=== PATIENT | male | born 1955 | race Caucasian/White ===

== ENCOUNTER 2021-03-26 15:58 | Outpatient (REF) | payer MEDICARE, SELFPAY ==
[2021-03-26 16:24] LABS: MANUAL DIFF FLAG NO
[2021-03-26 16:26] LABS: Basophils Percent Auto 0.5 % (0-2); Eosinophils Absolute Auto 0.3 X10*3/uL (0.0-0.4); Hematocrit 44.2 % (42-52); Hemoglobin 14.7 g/dl (14.0-18.0); Imm Gran Abs Auto 0.04 X10*3/uL (0.00-0.03); Imm Gran Pct Auto 0.5 % (0.0-0.4); Lymphocytes Absolute Auto 2.2 X10*3/uL (1.2-4.9); Lymphocytes Percent Auto 25.9 % (20-40); Mean Corpuscular HGB Conc 33.3 g/dl (31.0-36.0); Mean Corpuscular Hemoglobin 30.5 pg (27.0-33.0); Mean Corpuscular Volume 91.7 fL (80-98); Mean Platelet Volume 10.6 fL (9.4-12.4); Monocytes Absolute Auto 0.7 X10*3/uL (0.1-1.2); Monocytes Percent Auto 8.1 % (2-11); Neutrophils Absolute Auto 5.4 X10*3/uL (2.0-8.3); Platelet Count 182 X10*3/uL (160-400); Red Blood Count 4.82 X10*6/uL (4.60-5.80); Red Cell Distribution Width 12.7 % (11.0-16.0); White Blood Count 8.7 X10*3/uL (4.8-10.8)
[2021-03-26 16:49] LABS: Anion Gap 13 (12-20); Blood Urea Nitrogen 21 mg/dL (9-16); Calcium 9.6 mg/dL (8.4-10.2); Carbon Dioxide 27 mmol/L (22-29); Chloride 104 mmol/L (96-108); Cholesterol 256 mg/dL; Estimated Glomerular Filt Rate 59; Glucose Random 344 mg/dL (60-115); HDL Cholesterol 40 mg/dL; Potassium 4.5 mmol/L (3.3-5.1); Sodium 139 mmol/L (135-145); Triglycerides 552 mg/dL
[2021-03-26 16:59] LABS: Appearance Urine CLEAR; Color Urine YELLOW; Glucose Urine UA >=1000 MG/DL (NEG); Leukocyte Esterase Urine NEG (NEG); Nitrite Urine NEG (NEG); PH 5.5 (5.0-8.0); Urine Blood NEG (NEG); Urine Ketones 5 MG/DL (NEG); Urine Protein NEG (NEG-TRACE)
[2021-03-26 17:06] LABS: Creatinine Urine 90.62 mg/dL; Microalbum/Creatinine Ratio Ur 5.5 ug/mg cr
[2021-03-26 17:22] LABS: WBC Urine 0 /HPF (0-4)
[2021-03-26 17:23] LABS: RBC Urine 0-2 /HPF (0); Squamous Epithelial Cell Urine TRACE /LPF
== END 2021-03-26 15:59 | disposition home or self-care (01) ==
LOC: HO.LAB 15:58
PROVIDERS: PCP Physician Assistant; Visit Provider Physician Assistant
DX: I10 Essential (primary) hypertension (principal)
CPT/HCPCS: 36415; 80048; 80061; 81001; 81003; 82043; 85025

== ENCOUNTER 2021-10-09 07:08 | Outpatient (REF) | payer MEDICARE, SELFPAY ==
[2021-10-09 08:37] LABS: Estimated Average Glucose 174 mg/dL; Hemoglobin A1c % 7.7 %
[2021-10-09 08:57] LABS: Alanine Aminotransferase 22 U/L (0-40); Albumin Level 4.1 g/dL (3.5-5.0); Alkaline Phosphatase 57 U/L (39-117); Anion Gap 12 (12-20); Aspartate Amino Transferase 17 U/L (5-37); Bilirubin Total 0.6 mg/dL (0.0-1.0); Blood Urea Nitrogen 19 mg/dL (9-16); Calcium 9.4 mg/dL (8.4-10.2); Carbon Dioxide 27 mmol/L (22-29); Chloride 105 mmol/L (96-108); Cholesterol 257 mg/dL; Estimated Glomerular Filt Rate > 60; Glucose Fasting 177 mg/dL (60-99); HDL Cholesterol 47 mg/dL; LDL Cholesterol Calculated 184 mg/dl; Potassium 4.6 mmol/L (3.3-5.1); Sodium 139 mmol/L (135-145); Total Protein 7.2 g/dL (6.5-8.0); Triglycerides 134 mg/dL
[2021-10-09 09:10] LABS: TSH reflex Free T4 1.91 uIU/mL (0.32-4.0)
[2021-10-09 09:59] LABS: Appearance Urine CLEAR; Color Urine YELLOW; Glucose Urine UA NEG (NEG); Leukocyte Esterase Urine NEG (NEG); Nitrite Urine NEG (NEG); PH 5.5 (5.0-8.0); Specific Gravity - Urine >= 1.030 (1.005-1.025); Urine Blood NEG (NEG); Urine Ketones NEG (NEG); Urine Protein NEG (NEG-TRACE)
[2021-10-09 10:03] LABS: Prostate Specific Antigen Scr 0.35 ng/mL (<0.05-4.0)
== END 2021-10-09 07:09 | disposition home or self-care (01) ==
LOC: HO.LAB 07:08
PROVIDERS: PCP Physician Assistant; Visit Provider Physician Assistant
DX: Z12.5 Encounter for screening for malignant neoplasm of prostate (principal); R10.9 Unspecified abdominal pain; E11.65 Type 2 diabetes mellitus with hyperglycemia; E78.1 Pure hyperglyceridemia
CPT/HCPCS: 36415; 80053; 80061; 81003; 83036; 84153; 84443

== ENCOUNTER 2023-04-16 08:18 | Outpatient (REF) | payer MEDICARE, SELFPAY ==
[2023-04-16 09:38] LABS: Estimated Average Glucose 217 mg/dL; Hemoglobin A1c % 9.2 % (<6.0)
[2023-04-16 09:54] LABS: Alanine Aminotransferase 28 U/L (0-40); Albumin Level 3.9 g/dL (3.5-5.0); Alkaline Phosphatase 55 U/L (39-117); Anion Gap 13 (12-20); Aspartate Amino Transferase 19 U/L (5-37); Bilirubin Total 0.5 mg/dL (0.0-1.0); Blood Urea Nitrogen 19 mg/dL (9-16); Carbon Dioxide 27 mmol/L (22-29); Chloride 103 mmol/L (96-108); Cholesterol 258 mg/dL (<200); Estimated Glomerular Filt Rate > 60; Glucose Fasting 205 mg/dL (60-99); HDL Cholesterol 46 mg/dL (>40); LDL Cholesterol Calculated 185 mg/dL (<100); Potassium 4.8 mmol/L (3.3-5.1); Sodium 138 mmol/L (135-145); Total Protein 6.9 g/dL (6.5-8.0); Triglycerides 138 mg/dL (<150)
[2023-04-16 10:11] LABS: Creatinine Urine 94.83 mg/dL; Microalbumin Urine < 5.0 mg/L
[2023-04-16 13:59] LABS: Prostate Specific Antigen Scr 0.34 ng/mL (<0.05-4.0)
[2023-04-20 14:37] LABS: Testosterone, Free 26.4 pg/mL (35.0-155.0); Testosterone, Total 168 ng/dL (250-1100)
== END 2023-04-16 08:19 | disposition home or self-care (01) ==
LOC: HO.LAB 08:18
PROVIDERS: PCP Physician Assistant; Visit Provider Physician Assistant
DX: E11.65 Type 2 diabetes mellitus with hyperglycemia (principal); I42.0 Dilated cardiomyopathy; E11.42 Type 2 diabetes mellitus with diabetic polyneuropathy; I10 Essential (primary) hypertension; R53.83 Other fatigue; Z12.5 Encounter for screening for malignant neoplasm of prostate
CPT/HCPCS: 36415; 80053; 80061; 82043; 82570; 83036; 84153; 84402; 84403

== ENCOUNTER 2023-04-16 11:04 | Outpatient (AMB) | payer MEDICARE, SELFPAY ==
--- NOTE | 2023-04-16 11:05 | A.OFFPC_ITS ---
Vital Signs 04/16/23 11:09 Height 6 ft 3 in Weight 361 lb 8.929 oz BMI 45.2 BP 130/86 Blood Pressure Location Lt brachial Position Sitting Respiration 17 Pulse 80 Pulse Source Pulse Oximeter Pulse Oximetry (%) 97 Oxygen Delivery Method Room Air Intake Visit Reasons: F/U DMII Intake Note: Patient is here to follow up on DMII. Marketing Communications Manager Required: No Accompanied by: Self / Same As Patient Allergies atorvastatin [From LIPITOR] Allergy (Unknown, Verified 04/16/23 11:31) TONGUE SWELLING indomethacin [From INDOCIN] Allergy (Unknown, Verified 04/16/23 11:31) ANAPHYLAXIS Iodinated Contrast Media [IV CONTRAST] Allergy (Unknown, Verified 04/16/23 11:31) VOMITTING metformin Adverse Reaction (Intermediate, Uncoded 04/16/23 11:21) GI upset Medication List - Last Reconciled 04/16/23 by Miguel Willoughby PA-C acetaminophen ER (Tylenol Arthritis Pain) 1,300 mg (2 x 650 mg) PO Q8H PRN allopurinol 300 mg PO DAILY 30 days blood sugar diagnostic (Accu-Chek Guide test strips) As directed blood-glucose meter (Accu-Chek Guide Glucose Meter) As directed CPAP (CPAP Machine/Device) As directed dulaglutide (Trulicity) 0.75 mg (0.5 mL) subcut QWEEK 4 weeks gemfibrozil 600 mg PO BID 30 days glipizide 5 mg PO DAILY 30 days lisinopril 20 mg PO DAILY 30 days metoprolol succinate ER 25 mg PO DAILY 90 days Tobacco use date assessed: 04/16/23 HPI F/U DMII HPI Details Patient is a 68-year-old male here today for follow-up visit.? Patient has a past medical history significant for cardiac arrhythmia and has an AICD placed, type 2 diabetes, gout,? TERRENCE, hypertension. --concern> HAS MULTIPLE COMPLAINTS TODAY --> would like to see an eye doctor for a retinal exam as he has been having blurred vision likely secondary to his uncontrolled diabetes. Also like to get a hearing exam as he has been having progressively worsening hearing loss over last several years. Also reports he has been having low libido and erectile dysfunction and is interested in trying a medication to help with gaining interaction. Type 2 diabetes:? Today's A1c elevated at 9.8. Has noted some weight gain. Does report polydipsia polyuria. Been out of Trulicity over the last 6 months.? PLAN: Will start Lantus 10 units daily. Will restart Trulicity 0.75 weekly. Advised to discontinue glipizide due the risk pancreatic burnout and hypoglycemia. He will work extensively on diabetic diet. .. Dilated cardiomyopathy: Nonischemic dilated cardiomyopathy with left ventricular ejection fraction approximately 35-50% on serial echocardiograms, he is status post biventricular ICD placement with an arterial lead revision done in 2017. He also has had a cardiac catheterization showing no significant atherosclerosis of the coronary arteries. ?Patient followed by Cardiology.? He reports recently having a few episodes of palpitations to which he is concerned about.? Has called his communications instructor and has an appointment coming this coming month. Of note does very elevated total cholesterol and LDL though has not been able to tolerate statin therapy.? Advised to talk to his communications instructor about Praulent injection. .. Obesity:? Continues to suffer from morbid obesity though has been working very hard on trying to lose weight and has lost 4 lb since last office visit Laboratory Tests 09/03/21 10/09/21 02/19/22 15:47 07:35 13:59 Fasting Glucose 177 H Hgb A1c (Clinic) 7.7 H 7.3 H Hemoglobin A1c % Cholesterol LDL Cholesterol, C alc 04/16/23 08:37 Fasting Glucose 205 H Hgb A1c (Clinic) Hemoglobin A1c % 9.2 H Cholesterol 258 H LDL Cholesterol, C alc 185 H PFSH Surgical History History of back surgery AICD (automatic cardioverter/defibrillator) present Family History Father COPD (chronic obstructive pulmonary disease) CAD (coronary artery disease) Mother No problems noted. Social History Housing: House Patient Tobacco Use Status: Never used Tobacco Tobacco use type: Cigarette e-Cigarette/Vaping Use: Never Used Second Hand Smoke Exposure: No Current occupational status: retired Cognitive needs: No Hearing needs: No Vision needs: Yes (glasses) Questionnaire PHQ-9 Over the last 2 weeks, how often have you been bothered by any of the following problems? 1. Little interest or pleasure in doing things: not at all 2. Feeling down, depressed, or hopeless: not at all 3. Trouble falling or staying asleep, or sleeping too much: not at all 4. Feeling tired or having little energy: not at all 5. Poor appetite or overeating: not at all 6. Feeling bad about yourself - or that you are a failure or have let yourself or your family down: not at all 7. Trouble concentrating on things, such as reading the newspaper or watching television: not at all 8. Moving or speaking so slowly that other people could have noticed. Or the opposite - being so fidgety or restless that you have been moving around a lot more than usual: not at all 9. Thoughts that you would be better off or of hurting yourself in some way: not at all Total score: 0 Depression Screening Interpretation: Negative Depression Screening Done: Yes 26231 - PHQ-9 Billing: Yes Source: Developed by Drs. Damian Justice, Thuy Mast, Jonathon Light and colleagues, with an educational emi from [employer]. Thrive Questionnaire Date Thrive assessed: 04/16/23 I am a: Patient What is your living situation today?: I have a steady place to live Within the past 12 months, did the food you bought not last and you didn't have the money to get more?: Never true Within the past 12 months, did you worry whether your food would run out before you got money to buy more?: Never true Do you have trouble paying for medicines?: No Do you have trouble getting transportation to medical appointments?: No Do you have trouble paying your heating and electricity bill?: No Do you have trouble taking care of your child, family member or friend?: No Do you have trouble with day-to-day activities such as bathing, preparing meals, shopping, managing finances, etc.?: No Are you currently unemployed and looking for a job?: No Are you interested in more education?: No Please select the resources that you would like help with: None Currently or been in a relationship where the following occur: no concerns reported AUDIT C Alcohol Use Questionnaire (AUDIT-C) 1. How often do you have a drink containing alcohol?: Monthly or less 2. How many drinks containing alcohol do you have on a typical day when you are drinking?: 1 or 2 3. How often do you have six or more drinks on one occasion?: Never Total Score: 1 MASON-7 AMB Questionnaire MASON-7 Date MASON - 7 assessed: 04/16/23 Feeling nervous, anxious, or on edge: 0 = Not at all Not being able to stop or control worryin = Not at all Worrying too much about different things: 0 = Not at all Trouble relaxin = Not at all Being so restless that it is hard to sit still: 0 = Not at all Becoming easily annoyed or irritable: 0 = Not at all Feeling afraid as if something awful might happen: 0 = Not at all Total MASON-7 score (0-4 normal; 5-9 mild; 10-14 moderate; 15-21 severe): 0 Source: Developed by Drs. Damian Justice, Thuy Mast, Jonathon Light and colleagues, with an educational emi from [employer]. MASON-7 Assessment Billing MASON-7 Assessment Tool: MASON-7 Assessment 46537 Review of Systems Const Denies headache(s) Eyes Denies loss of vision ENT Denies vertigo, Denies dizziness, Denies headache(s) and Denies sore throat Card Denies chest pain, Denies leg edema and Denies lightheadedness Resp Denies cough, Denies hemoptysis and Denies wheezing GI Denies abdominal pain, Denies melena, Denies constipation, Denies diarrhea and Denies vomiting Denies dysuria, Denies urinary frequency and Denies urinary urgency Musc Denies arthralgias, Denies joint swelling, Denies numbness and Denies tingling Neuro Denies Abnormal speech present, Denies behavioral changes, Denies vertigo, Denies dizziness, Denies headache(s), Denies loss of vision, Denies memory loss, Denies numbness and Denies tingling Psych Denies anxiety, Denies behavioral changes, Denies depression, Denies memory loss and Denies panic attacks Hector/Lymph Denies easy bleeding and Denies easy bruising Aller/Immun Denies wheezing Physical exam (Primary Care) Vital Signs: Last Vital Signs Pulse 80 04/16/23 11:09 Resp 17 04/16/23 11:09 BP 130/86 04/16/23 11:09 Pulse Ox 97 04/16/23 11:09 Oxygen Delivery Method Room Air 04/16/23 11:09 BMI result Body Mass Index 45.2 BMI Assessment/Plan discussion: High Tobacco/Smoking Status: Tobacco use Status Tobacco use date assessed 04/16/23 04/16/23 11:24 Patient Tobacco Use Status Never used Tobacco 04/16/23 11:07 Tobacco use type Cigarette 04/16/23 11:07 e-Cigarette/Vaping Use Never Used 04/16/23 11:07 PHQ-9: PHQ-9 Score PHQ-9: Total score 0 04/16/23 11:37 Depression Screening Interpretation: Negative Thrive Assessment: Date of Thrive Assessment Date Thrive assessed 04/16/23 04/16/23 11:24 Currently or been in a relationship where the following occur: no concerns reported Const Other: Morbidly Obese General: healthy appearing, no acute distress, alert and awake Nutritional Appearance: well nourished Orientation/consciousness: oriented to person, oriented to place and oriented to time HENMT Ears: TM's normal bilaterally General nose exam: Normal nasal mucous membranes and turbinates present Eyes Conjunctivae: conjunctivae normal Sclerae: sclerae normal Pupils: Equal, round and reactive pupils present Neck Neck: Yes no lymphadenopathy and Yes no JVD Thyroid: Thyroid normal Carotids: no bruits Resp Effort & Inspection: normal respiratory effort and not tachypneic Auscultation: no crackles, no rales, no rhonchi and no wheezes Cardio Rate: regular rate Rhythm: regular rhythm Heart sounds: no murmurs and normal S1 and S2 GI Palpation (GI): Soft to palpation, nontender, no hepatomegaly and no splenomegaly Auscultation: normal bowel sounds Skin General skin exam: no rashes or lesions noted and dry skin Neuro General: oriented to person, oriented to place and oriented to time Cranial nerves: Yes Equal, round and reactive pupils present Speech: No Abnormal speech present Gait exam (Neuro): Normal gait present Motor exam (neuro): no tremor noted Extrem Right upper extremity: full ROM Left upper extremity: full ROM Right lower extremity: full ROM; no edema Left lower extremity: full ROM; no edema Psych Mental Status: mental status grossly normal Speech and movement: Normal speech and movement present Affect: normal affect Attitude: cooperative Thought process: Normal thought process present Assessment and Plan Assessment & Plan (1) Dilated cardiomyopathy: Comment: Nonischemic dilated cardiomyopathy with left ventricular ejection fraction approximately 35-50% on serial echocardiograms, he is status post biventricular ICD placement with an arterial lead revision done in 2017 Code(s): I42.0 - Dilated cardiomyopathy Plan: As per HPI patient is followed by Dr. Yoon his cardiac electric paperhanger contractor. Has a ICD placed. He reports over the last 2 months having more episodes of fatigue in the afternoons and a couple of episodes tunnel vision when exerting himself. He has not taking his blood pressure or blood sugar at times of these episodes. Plan for now is to take his metoprolol and glipizide in the afternoons as these may cause some of the fatigue feeling (2) DMII (diabetes mellitus, type 2): Code(s): E11.9 - Type 2 diabetes mellitus without complications Qualifiers: Diabetes mellitus complication detail: with polyneuropathy Diabetes mellitus complication status: with neurologic complications Diabetes mellitus truck terminal manager insulin use: without halfway use Qualified Code(s): E11.42 - Type 2 diabetes mellitus with diabetic polyneuropathy Plan: Patient's diabetes suboptimally controlled. Today's A1c 9.2. He does report having polydipsia polyuria.. Does report some blurred vision that he relates to uncontrolled diabetes.. Will restart Trulicity and started on daily long-acting insulin. Will work extensively on lifestyle to continue to reduce his A1c. Goal A1c is to be below 7.0. (3) HTN (hypertension): Code(s): I10 - Essential (primary) hypertension Qualifiers: Hypertension type: primary hypertension Qualified Code(s): I10 - Essential (primary) hypertension Plan: Patient's blood pressure acceptable today in office. Will continue him on his current dose of lisinopril and metoprolol. Goal blood pressures to be below 140/90 (4) AICD (automatic cardioverter/defibrillator) present: Code(s): Z95.810 - Presence of automatic (implantable) cardiac defibrillator Plan: Patient followed by Dr. Yoon insulation machine operator (5) Obese: Code(s): E66.9 - Obesity, unspecified Qualifiers: Body mass index: BMI 40.0-44.9 Obesity classification: adult class 3 (BMI >= 40) Obesity type: due to excess calories Serious obesity comorbidity presence: with serious comorbidity Qualified Code(s): E66.01 - Morbid (severe) obesity due to excess calories; Z68.41 - Body mass index [BMI] 40.0-44.9, adult Plan: Unfortunately gained weight since last office visit. Patient does understand his BMI is well over 40 and has been working on better eating habits and being more physically active to reduce his weight. (6) SNHL (sensorineural hearing loss): Code(s): H90.5 - Unspecified sensorineural hearing loss Qualifiers: Contralateral hearing status: unspecified Laterality: right Qualified Code(s): H90.5 - Unspecified sensorineural hearing loss Plan: Will send for hearing exam (7) HLD (hyperlipidemia): Code(s): E78.5 - Hyperlipidemia, unspecified Qualifiers: Hyperlipidemia type: mixed hyperlipidemia Qualified Code(s): E78.2 - Mixed hyperlipidemia Plan: Patient's most recent lipid panel showing elevated total cholesterol and LDL for his cardiovascular risk as a diabetic. He has not been able to tolerate statin. Advised to speak with his communications instructor about trial injections to help reduce his LDL thus cardiovascular risk. (8) Erectile dysfunction: Code(s): N52.9 - Male erectile dysfunction, unspecified Qualifiers: Erectile dysfunction type: due to other cause Qualified Code(s): N52.8 - Other male erectile dysfunction Plan: Reports having issues with erectile dysfunction. Willing to try p.r.n. sildenafil. Orders: Orders Lipid Panel Today E11.42 - Type 2 diabetes mellitus with diabetic polyneuropathy Microalbumin, Random (w Creat) Today E11.42 - Type 2 diabetes mellitus with diabetic polyneuropathy [facility] [place]. Panel Fast Today E11.42 - Type 2 diabetes mellitus with diabetic polyneuropathy Referrals Speech and Hearing Referral H90.5 - Unspecified sensorineural hearing loss Ophthalmology Referral E11.42 - Type 2 diabetes mellitus with diabetic polyneuropathy Medications: New insulin glargine (Lantus Solostar U-100 Insulin) 10 units (0.1 mL) subcut QPM 30 days 3 mL 1RF E11.42 - Type 2 diabetes mellitus with diabetic polyneuropathy pen needle, diabetic (BD Ultra-Fine Maddie Pen Needle) As directed 50 ea 0RF E11.42 - Type 2 diabetes mellitus with diabetic polyneuropathy flash glucose sensor (FreeStyle Michelle 14 Day Sensor kit) As directed 1 ea 6RF E11.42 - Type 2 diabetes mellitus with diabetic polyneuropathy flash glucose scanning reader (FreeStyle Michelle 14 Day [place]) As directed 1 ea 0RF E11.42 - Type 2 diabetes mellitus with diabetic polyneuropathy ibuprofen 800 mg PO Q8H 15 days PRN 45 tabs 1RF pain M54.9 - Dorsalgia, unspecified sildenafil 100 mg PO DAILY 5 days PRN 5 tabs 0RF sexual activity N52.9 - Male erectile dysfunction, unspecified gabapentin 100 mg PO BID 30 days 60 caps 1RF E11.42 - Type 2 diabetes mellitus with diabetic polyneuropathy Changed From lisinopril 20 mg PO DAILY 30 days 30 tabs 3RF I10 - Essential (primary) hypertension To lisinopril 20 mg PO DAILY 90 days 90 tabs 1RF I10 - Essential (primary) hypertension Refilled dulaglutide (Trulicity) 0.75 mg (0.5 mL) subcut QWEEK 4 weeks 2 mL 3RF E11.65 - Type 2 diabetes mellitus with hyperglycemia acetaminophen ER (Tylenol Arthritis Pain) 1,300 mg (2 x 650 mg) PO Q8H PRN 120 tabs 3RF pain M10.9 - Gout, unspecified metoprolol succinate ER 25 mg PO DAILY 90 days 90 tabs 1RF I10 - Essential (primary) hypertension, M10.9 - Gout, unspecified On Hold glipizide Hold Comment: Doctor's Order 5 mg PO DAILY 30 days 30 tabs 3RF E11.9 - Type 2 diabetes mellitus without complications Coding Level of Care Code Est Pt Level 4 (02042) Diagnoses Dilated cardiomyopathy I42.0 Type 2 diabetes mellitus with diabetic polyneuropathy, without long-term current use of insulin E11.42 Diabetes mellitus complication detail: with polyneuropathy Diabetes mellitus complication status: with neurologic complications Diabetes mellitus truck terminal manager insulin use: without truck terminal manager use Primary hypertension I10 Hypertension type: primary hypertension AICD (automatic cardioverter/defibrillator) present Z95.810 Class 3 severe obesity due to excess calories with serious comorbidity and body mass index (BMI) of 40.0 to 44.9 in adult E66.01; Z68.41 Body mass index: BMI 40.0-44.9 Obesity classification: adult class 3 (BMI >= 40) Obesity type: due to excess calories Serious obesity comorbidity presence: with serious comorbidity Sensorineural hearing loss (SNHL) of right ear, unspecified hearing status on contralateral side H90.5 Contralateral hearing status: unspecified Laterality: right Mixed hyperlipidemia E78.2 Hyperlipidemia type: mixed hyperlipidemia Other male erectile dysfunction N52.8 Erectile dysfunction type: due to other cause Additional Codes MASON-7 Assessment Billing - MASON-7 Assessment Tool: MASON-7 Assessment [id number] ([id number])
[2023-04-16 11:09] VITALS: BP 130/86; PULSE 80; RESP 17; O2SAT 97; BMI 45.2
== END 2023-04-16 12:15 | disposition home or self-care (01) ==
PROVIDERS: PCP Physician Assistant; Visit Provider Physician Assistant
DX: E11.42 Type 2 diabetes mellitus with diabetic polyneuropathy (principal); E66.01 Morbid (severe) obesity due to excess calories; I42.0 Dilated cardiomyopathy; Z68.41 Body mass index [BMI] 40.0-44.9, adult; I10 Essential (primary) hypertension; Z95.810 Presence of automatic (implantable) cardiac defibrillator; H90.5 Unspecified sensorineural hearing loss; E78.2 Mixed hyperlipidemia; N52.8 Other male erectile dysfunction
CPT/HCPCS: 99214

== ENCOUNTER 2023-06-02 12:50 | Outpatient (AMB) | payer MEDICARE, SELFPAY ==
--- NOTE | 2023-06-02 13:03 | MHC.OFFVIS ---
Intake Intake Visit Reasons: Testicular hypofunction Intake Note: New Patient presents for initial visit for low testosterone Urology Medications: none Blood Thinner: none Mysql Developer Required: No Accompanied by: Self / Same As Patient Allergies atorvastatin [From LIPITOR] Allergy (Unknown, Verified 06/02/23 14:19) TONGUE SWELLING indomethacin [From INDOCIN] Allergy (Unknown, Verified 06/02/23 14:19) ANAPHYLAXIS Iodinated Contrast Media [IV CONTRAST] Allergy (Unknown, Verified 06/02/23 14:19) VOMITTING metformin Adverse Reaction (Intermediate, Uncoded 06/02/23 14:19) GI upset Medication List - Last Reconciled 06/02/23 by DILLON Rizzo acetaminophen ER (Tylenol Arthritis Pain) 1,300 mg (2 x 650 mg) PO Q8H PRN allopurinol 300 mg PO DAILY 30 days blood-glucose sensor (FreeStyle Michelle 3 Sensor device) As directed CPAP (CPAP Machine/Device) As directed dulaglutide (Trulicity) 0.75 mg (0.5 mL) subcut QWEEK 4 weeks flash glucose scanning reader ([email or web address] Michelle 2 [place]) As directed flash glucose sensor (FreeStyle Michelle 2 Sensor kit) As directed gabapentin 100 mg PO BID 30 days gemfibrozil 600 mg PO BID 30 days glipizide 5 mg PO DAILY 30 days ibuprofen 800 mg PO Q8H PRN 15 days insulin glargine (Lantus Solostar U-100 Insulin) 10 units (0.1 mL) subcut QPM 30 days lisinopril 20 mg PO DAILY 90 days metoprolol succinate ER 25 mg PO DAILY 90 days pen needle, diabetic (BD Ultra-Fine Maddie Pen Needle) As directed sildenafil 100 mg PO DAILY PRN 5 days HPI HPI Comments History of Present Illness Details Curtis is very pleasant 68-year-old male patient of Dr. Willoughby. He has past medical history significant for cardiac arrhythmia and has an AICD placed, type 2 diabetes, gout,?TERRENCE, and hypertension. He presents to the office today for hypogonadism. In discussion with the patient today he reports noting ongoing worsening fatigue with decreased stamina. In review of patient's chart it appears testosterone and PSA have been ordered and completed. These results reviewed with the patient today. PSAs are as follows: 10/25--0.4 04/27--0.3 Testosterone free and total 04/27--168 and 26.4 Discussed at length potential causes for hypogonadism. When asked patient does report lower urinary tract symptoms. He endorses to urinary urgency, urinary frequency, nocturia, and episodes of mixed urinary incontinence. He otherwise denies hematuria, dysuria, foul-smelling urine, flank pain, fever, and or chills. He discusses his previous vasectomy at the age of 24 as his last biological child was born with osteogenesis imperfecta. He also discusses having adopted 3 children. He discusses his recent recent time share in [place]. 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 In office urinalysis results reviewed with the patient today. In review of patient's chart it appears last A1c 04/27--9.2. He discusses following up with bed and breakfast innkeeper Dr. Yoon regarding PDE5s given his longstanding cardiac history with mutiple myocardial infarctions and history of cardiac arrest. He otherwise offers no issues or concerns at this time. [facility] Surgical History History of back surgery AICD (automatic cardioverter/defibrillator) present Family History Father COPD (chronic obstructive pulmonary disease) CAD (coronary artery disease) Mother No problems noted. Social History Housing: House Patient Tobacco Use Status: Never used Tobacco Tobacco use type: Cigarette e-Cigarette/Vaping Use: Never Used Second Hand Smoke Exposure: No Current occupational status: retired Cognitive needs: No Hearing needs: No Vision needs: Yes (glasses) Review of Systems Const Reports as per HPI Eyes Reports no additional complaints ENT Reports no additional complaints Card Reports as per HPI Resp Reports as per HPI GI Reports no additional complaints Reports as per HPI Musc Reports no additional complaints Neuro Reports no additional complaints Psych Reports no additional complaints Endo Reports as per HPI Hector/Lymph Reports no additional complaints Aller/Immun Reports no additional complaints Physical Exam Const General: cooperative, comfortable, no acute distress, well developed, alert and awake Nutritional Appearance: overweight Orientation/consciousness: patient oriented x3 Limitations: no limitations HEENT Head: Yes normal to inspection, Yes normocephalic and Yes atraumatic Ears: hearing grossly normal bilaterally Eyes General: appearance normal, both eyes and all related structures Neck Neck: Yes normal visual inspection and Yes trachea midline Chest Chest palpation & inspection: normal inspection of the chest Resp Effort & Inspection: normal respiratory effort and able to speak in complete sentences Cardio Rate: regular rate GI Inspection: Yes normal to inspection General: Yes no CVA tenderness Back/Spine/Pelvis Back: no CVA tenderness Skin General skin exam: no rashes or lesions noted Neuro General: patient oriented x3 Extrem General: Yes normal to inspection Psych Appearance: grossly normal and well kempt Mental Status: mental status grossly normal Speech and movement: Normal speech and movement present and Clear speech present Affect: normal affect Attitude: cooperative Thought process: Normal thought process present Thought content: Normal thought content present Insight: Fair insight present (Psych) Judgement: Fair judgement present (Psych) Results AMB Urinalysis, Automated UA Leukoctes 0 Zaynab/uL Last Edit by [employer] on 06/02/23 13:31 UA Nitrite Negative Last Edit by [employer] on 06/02/23 13:31 UA Urobilinogen 0.2 mg/dL Last Edit by [employer] on 06/02/23 13:31 UA Protein 15 mg/dL Last Edit by [employer] on 06/02/23 13:31 UA pH 6.0 Last Edit by [employer] on 06/02/23 13:31 UA Blood 0 Alphonso/uL Last Edit by [employer] on 06/02/23 13:31 UA Specific [place] 1.020 Last Edit by [employer] on 06/02/23 13:31 UA Ketone Negative Last Edit by [employer] on 06/02/23 13:31 UA Bilirubin 0 mg/dL Last Edit by [employer] on 06/02/23 13:31 UA Glucose 100 mg/dL Last Edit by [employer] on 06/02/23 13:31 Results Reviewed Results Reviewed: Laboratory Last Values Urine pH (Auto) 6.0 06/02/23 13:16 Specific [place] (Auto) 1.020 06/02/23 13:16 Urine Protein (Auto) 15 mg/dL 06/02/23 13:16 Glucose (UA)(Auto) 100 mg/dL 06/02/23 13:16 Urine Ketones (Auto) Negative 06/02/23 13:16 Urine Blood (Auto) 0 Alphonso/uL 06/02/23 13:16 Urine Nitrite (Auto) Negative 06/02/23 13:16 Urine Bilirubin (Auto) 0 mg/dL 06/02/23 13:16 Urine Urobilinogen (Auto) 0.2 mg/dL 06/02/23 13:16 Leukocyte Esterase (Auto) 0 Zaynab/uL 06/02/23 13:16 Assessment & Plan Assessment & Plan (1) Hypogonadism male: Code(s): E29.1 - Testicular hypofunction (2) Lower urinary tract symptoms: Code(s): R39.9 - Unspecified symptoms and signs involving the genitourinary system (3) Erectile dysfunction: Code(s): N52.9 - Male erectile dysfunction, unspecified Qualifiers: Erectile dysfunction type: due to other cause Qualified Code(s): N52.8 - Other male erectile dysfunction Plan In office urinalysis results reviewed with the patient today; as noted above. Patient reporting lower urinary tract symptoms however does not wish to have further workup at this time Discussed at length potential causes for hypogonadism, erectile dysfunction, and lower urinary tract symptoms patient is experiencing. Discussed and stressed the importance of weight loss for improvement in lower urinary tract symptoms, ED, and hypogonadism as well as overall health and well-being. Discussed and stressed the importance of managing diabetes for improvement urological issues as well as overall health and well-being. Discussed at length lifestyle modifications to assist with erectile dysfunction and hypogonadism. Will obtain redraw of testosterone free and total; discussed obtaining labs 2 hours upon wakening. Follow-up with cardiology regarding use of erectile dysfunction medications prior to use for cardiac clearance. Discussed and stressed the importance of compliance with CPAP machine Follow-up in 2-4 weeks with lab to be completed prior; or sooner with any issues, concerns, and or questions. Orders: Orders Testosterone, Free/Total Today E11.69 - Type 2 diabetes mellitus with other specified complication, E29.1 - Testicular hypofunction, N52.1 - Erectile dysfunction due to diseases classified elsewhere AMB Urinalysis Automated Today Z13.9 - Encounter for screening, unspecified Patient Instructions: The patient had an opportunity to ask questions regarding the treatment plan. All questions were answered. Physical exam, labs, and imaging were discussed and reviewed in detail. As well as risks, benefits, and discussion of treatment choices. No major barriers to understanding were identified. The patient expressed understanding and agreement with the above treatment plan. The patient was made aware they should contact our office by phone for worsening of their current condition, the appearance of new symptoms, or with any questions or concerns. Compliance is encouraged with any medications and follow up testing that is ordered. It is a privilege to be allowed the opportunity to participate in? your urological care.? Again, if you have any questions or concerns If you have any questions or concerns please do not hesitate to contact me. The office is [phone]. This note is constructed using voice recognition software. While every effort has been made to ensure accuracy icer hand errors may have been included. Yours sincerely, DILLON Rizzo Coding Level of Care Code New Pt Level 3 (96924) Diagnoses Hypogonadism male E29.1 Lower urinary tract symptoms R39.9 Other male erectile dysfunction N52.8 Erectile dysfunction type: due to other cause
== END 2023-06-02 14:43 | disposition home or self-care (01) ==
PROVIDERS: PCP Physician Assistant; Visit Provider Nurse Practitioner Family
DX: E29.1 Testicular hypofunction (principal); R39.9 Unspecified symptoms and signs involving the genitourinary system; N52.8 Other male erectile dysfunction
CPT/HCPCS: 99203

== ENCOUNTER → 2023-06-02 12:50 | Outpatient (BNVA) | payer MEDICARE, SELFPAY | PROVIDERS: PCP Physician Assistant; Visit Provider Nurse Practitioner Family | DX: E29.1 Testicular hypofunction (principal); R39.9 Unspecified symptoms and signs involving the genitourinary system; N52.8 Other male erectile dysfunction | CPT/HCPCS: 81003; 99202 ==

== ENCOUNTER 2023-06-08 08:58 | Outpatient (REF) | payer MEDICARE, SELFPAY ==
[2023-06-08 10:20] LABS: Alanine Aminotransferase 23 U/L (0-40); Albumin Level 3.8 g/dL (3.5-5.0); Alkaline Phosphatase 55 U/L (39-117); Anion Gap 12 (12-20); Aspartate Amino Transferase 18 U/L (5-37); Bilirubin Total 0.5 mg/dL (0.0-1.0); Blood Urea Nitrogen 19 mg/dL (9-16); Calcium 9.2 mg/dL (8.4-10.2); Carbon Dioxide 26 mmol/L (22-29); Chloride 106 mmol/L (96-108); Cholesterol 233 mg/dL (<200); Estimated Glomerular Filt Rate > 60; Glucose Fasting 202 mg/dL (60-99); HDL Cholesterol 44 mg/dL (>40); LDL Cholesterol Calculated 157 mg/dL (<100); Potassium 4.3 mmol/L (3.3-5.1); Sodium 140 mmol/L (135-145); Total Protein 7.1 g/dL (6.5-8.0); Triglycerides 164 mg/dL (<150)
[2023-06-08 11:03] LABS: Creatinine Urine 44.59 mg/dL; Microalbumin Urine < 5.0 mg/L
[2023-06-12 22:48] LABS: Testosterone, Free 21.2 pg/mL (35.0-155.0); Testosterone, Total 147 ng/dL (250-1100)
== END 2023-06-08 08:59 | disposition home or self-care (01) ==
LOC: HO.LAB 08:58
PROVIDERS: PCP Physician Assistant; Referring Provider Physician Assistant; Visit Provider Nurse Practitioner Family
DX: E11.42 Type 2 diabetes mellitus with diabetic polyneuropathy (principal); E11.69 Type 2 diabetes mellitus with other specified complication; N52.1 Erectile dysfunction due to diseases classified elsewhere; E29.1 Testicular hypofunction
CPT/HCPCS: 36415; 80053; 80061; 82043; 82570; 84402; 84403

== ENCOUNTER 2023-06-23 14:21 | Outpatient (AMB) | payer MEDICARE, SELFPAY ==
--- NOTE | 2023-06-23 14:21 | A.OFFVIS_ITS ---
Intake Intake Visit Reasons: testo/ free total f/u Intake Note: Patient presents for a follow-up on Low testosterone Urology Medications: none Blood Thinner: none Superintendent Recreation Required: No Accompanied by: Self / Same As Patient Allergies atorvastatin [From LIPITOR] Allergy (Unknown, Verified 06/23/23 14:23) TONGUE SWELLING indomethacin [From INDOCIN] Allergy (Unknown, Verified 06/23/23 14:23) ANAPHYLAXIS Iodinated Contrast Media [IV CONTRAST] Allergy (Unknown, Verified 06/23/23 14:23) VOMITTING metformin Adverse Reaction (Intermediate, Uncoded 06/23/23 14:23) GI upset HPI HPI Comments History of Present Illness Details Curtis is very pleasant 68-year-old male patient of Dr. Willoughby. He has past medical history significant for cardiac arrhythmia and has an AICD placed, type 2 diabetes, gout,?TERRENCE, and hypertension. He is being followed up on today via video telehealth for his hypogonadism. In discussion with the patient today reports to be doing and feeling well. He discusses having started Trulicity and insulin and is feeling as things are getting better for him. Recent labs reviewed with the patient today. PSAs are as follows: 10/25--0.4 04/27--0.3 Testosterone free and total 04/27--168 and 26.4, 06/27--147 Discussed at length potential causes for hypogonadism. Discussed initiation of testosterone placement versus surveillance monitoring. He otherwise denies any other issues or concerns at this time. He discusses following up with his PCP for his recent diagnosis of uncontrolled diabetes as well as his motor rebuilder Dr. Yoon regarding PDE5s given his longstanding cardiac history with mutiple myocardial infarctions and history of cardiac arrest. He otherwise offers no issues or concerns at this time. [facility] Surgical History History of back surgery AICD (automatic cardioverter/defibrillator) present Family History Father COPD (chronic obstructive pulmonary disease) CAD (coronary artery disease) Mother No problems noted. Social History Housing: House Patient Tobacco Use Status: Never used Tobacco Tobacco use type: Cigarette e-Cigarette/Vaping Use: Never Used Second Hand Smoke Exposure: No Current occupational status: retired Cognitive needs: No Hearing needs: No Vision needs: Yes (glasses) Review of Systems Const Reports as per [facility] Eyes Reports no additional complaints ENT Reports no additional complaints Card Reports as per HPI Resp Reports as per HPI GI Reports no additional complaints Reports as per HPI Musc Reports no additional complaints Neuro Reports no additional complaints Psych Reports no additional complaints Endo Reports as per HPI Hector/Lymph Reports no additional complaints Aller/Immun Reports no additional complaints Physical Exam Const General: cooperative, healthy appearing, comfortable, no acute distress, well developed, alert and awake Nutritional Appearance: overweight Orientation/consciousness: patient oriented x3 Resp Effort & Inspection: normal respiratory effort and able to speak in complete sentences Neuro General: patient oriented x3 Psych Appearance: grossly normal and well kempt Speech and movement: Clear speech present Attitude: cooperative Thought process: Normal thought process present Thought content: Normal thought content present Insight: Fair insight present (Psych) Judgement: Fair judgement present (Psych) Assessment & Plan Assessment & Plan (1) Hypogonadism male: Code(s): E29.1 - Testicular hypofunction Plan Recent PSA and testosterone results reviewed with the patient today; as noted above Discussed at length potential causes for hypogonadism Start testosterone as discussed and prescribed. Will obtain CBC in 3 months He denies any bothersome urinary issues or concerns at this time Discussed and stressed the importance of weight loss for improvement in lower urinary tract symptoms, ED, and hypogonadism as well as overall health and well-being. Discussed and stressed the importance of managing diabetes for improvement urological issues as well as overall health and well-being. Discussed at length lifestyle modifications to assist with erectile dysfunction and hypogonadism. Discussed and stressed the importance of compliance with CPAP machine Follow-up in 3 months with labs to be completed prior; or sooner with any issues, concerns, and or questions. Orders: Orders Complete Blood Count no Diff 3 Months E29.1 - Testicular hypofunction Medications: New testosterone apply 2 pumps over max area - alternate shoulders on alternate days 2 pumps topical DAILY 75 grams 1RF 30 days E29.1 - Testicular hypofunction, R79.89 - Other specified abnormal findings of blood chemistry Patient Instructions: The patient had an opportunity to ask questions regarding the treatment plan. All questions were answered. Physical exam, labs, and imaging were discussed and reviewed in detail. As well as risks, benefits, and discussion of treatment choices. No major barriers to understanding were identified. The patient expressed understanding and agreement with the above treatment plan. The patient was made aware they should contact our office by phone for worsening of their current condition, the appearance of new symptoms, or with any questions or concerns. Compliance is encouraged with any medications and follow up testing that is ordered. It is a privilege to be allowed the opportunity to participate in? your urological care.? Again, if you have any questions or concerns If you have any questions or concerns please do not hesitate to contact me. The office is [phone]. This note is constructed using voice recognition software. While every effort has been made to ensure accuracy electrical project engineer errors may have been included. Yours sincerely, HAILEE Rizzo- Telehealth Telehealth Location of provider rendering services: practice address Location of patient: address on file Patient Identification confirmed using: Name, : Yes Telehealth method: video Patient verbally consented to treatment: Yes Patient verbally consented to billing insurance company: Yes Patient informed of any privacy concerns related to visit: Yes Minutes spent on Phone/Video with Pt.: 15 Coding Level of Care Code Tele Est Pt Level 4 (51149) Diagnoses Hypogonadism male E29.1
== END 2023-06-23 14:57 | disposition home or self-care (01) ==
LOC: HO.HUSH 14:21
PROVIDERS: PCP Physician Assistant; Visit Provider Nurse Practitioner Family
DX: E29.1 Testicular hypofunction (principal)
CPT/HCPCS: 99214

== ENCOUNTER → 2023-06-23 14:21 | Outpatient (BNVA) | payer MEDICARE, SELFPAY | PROVIDERS: PCP Physician Assistant; Visit Provider Nurse Practitioner Family ==

== ENCOUNTER 2023-07-15 08:55 | Outpatient (REF) | payer MEDICARE, SELFPAY | END 2023-07-15 08:56 | disposition home or self-care (01) | LOC: HO.SH 08:55 | PROVIDERS: Visit Provider Physician Assistant | DX: H90.3 Sensorineural hearing loss, bilateral (principal) | CPT/HCPCS: 92557; 92567 ==

== ENCOUNTER 2023-07-23 08:46 | Outpatient (AMB) | payer MEDICARE, SELFPAY ==
--- NOTE | 2023-07-23 08:41 | A.OFFPC_ITS ---
Vital Signs 07/23/23 08:43 Height 6 ft 3 in Intake Visit Reasons: 3 Month F/U-request fasting [phone] Intake Note: pt complains of left ear pain and right ear hearing problems, requesting ENT referral Ledger Clerk Required: No Accompanied by: Self / Same As Patient Allergies atorvastatin [From LIPITOR] Allergy (Unknown, Verified 07/23/23 08:47) TONGUE SWELLING indomethacin [From INDOCIN] Allergy (Unknown, Verified 07/23/23 08:47) ANAPHYLAXIS Iodinated Contrast Media [IV CONTRAST] Allergy (Unknown, Verified 07/23/23 08:47) VOMITTING metformin Adverse Reaction (Intermediate, Uncoded 06/23/23 14:23) GI upset Medication List - Last Reconciled 07/23/23 by Miguel Willoughby PA-C acetaminophen ER (Tylenol Arthritis Pain) 1,300 mg (2 x 650 mg) PO Q8H PRN allopurinol 300 mg PO DAILY 30 days blood-glucose sensor (FreeStyle Michelle 3 Sensor device) As directed CPAP (CPAP Machine/Device) As directed dulaglutide (Trulicity) 0.75 mg (0.5 mL) subcut QWEEK 4 weeks flash glucose scanning reader (FreeStyle Michelle 2 [place]) As directed flash glucose sensor (FreeStyle Michelle 2 Sensor kit) As directed gabapentin 100 mg PO BID 30 days gemfibrozil 600 mg PO BID 30 days glipizide 5 mg PO DAILY 30 days ibuprofen 800 mg PO Q8H PRN 15 days insulin glargine (Lantus Solostar U-100 Insulin) 15 units (0.15 mL) subcut QPM 30 days lisinopril 20 mg PO DAILY 90 days metoprolol succinate ER 25 mg PO DAILY 90 days pen needle, diabetic (BD Ultra-Fine Maddie Pen Needle) As directed sildenafil 100 mg PO DAILY PRN 5 days testosterone 2 pumps topical DAILY 30 days Tobacco use date assessed: 07/23/23 Fall risk assessment: No Falls in past year Last assessed Fall Risk: 07/23/23 Dental Screening Dental Screen Date: 07/23/23 Did you have a dental visit in the last 12 months?: No Did you have a dental problem in the last 6 months where you did not have access to dental care?: Yes Was dental information given to patient?: Patient has dentist HPI 3 Month F/U-request fasting [phone] HPI Details atient is a 68-year-old male being evaluated today via telephone only.? Patient has a past medical history significant for cardiac arrhythmia and has an AICD placed, type 2 diabetes, gout,? TERRENCE, hypertension, hypogonadism. --concern> did audiological testing and does have central narrowing hearing loss in left ear. He is anticipating seeing ENT specialty. Type 2 diabetes:? Most recent A1c elevated at 9.2, at that time he was reporting polydipsia polyuria. Has been started on Trulicity 0.75 weekly. Reports his sugars have been bit better. Still has times of hyperglycemia. Advised to discontinue glipizide due the risk pancreatic burnout and hypoglycemia. He will work extensively on diabetic diet. Also does have neuropathy in his lower extremities that he has been taking gabapentin for. He is interested in higher dose of gabapentin. .. Hypogonadism: Found to have low testosterone at 147. Has establish care with urologist. Has started topical testosterone therapy. .. Dilated cardiomyopathy: Nonischemic dilated cardiomyopathy with left ventricular ejection fraction approximately 35-50% on serial echocardiograms, he is status post biventricular ICD placement with an arterial lead revision done in 2017. He also has had a cardiac catheterization showing no significant atherosclerosis of the coronary arteries. ?Patient followed by Cardiology.? He reports recently having a few episodes of profuse sweating on minimal exertion..? Has called his windows security engineer and has an appointment coming this coming month. Of note does very elevated total cholesterol and LDL though has not been able to tolerate statin therapy.? Advised to talk to his windows security engineer about Praulent injection. .. Obesity:? Continues to suffer from morbid obesity though has been working very hard on trying to lose weight . He reports since starting GLP 1 he has lost some weight. Laboratory Tests 02/19/22 04/16/23 04/16/23 13:59 08:37 08:37 Fasting Glucose 205 H Hgb A1c (Clinic) 7.3 H Hemoglobin A1c % 9.2 H Cholesterol 258 H LDL Cholesterol, C alc Total Testosterone 04/16/23 04/16/23 06/08/23 08:37 08:37 09:17 Fasting Glucose 202 H Hgb A1c (Clinic) Hemoglobin A1c % Cholesterol LDL Cholesterol, C alc 185 H Total Testosterone 168 L 06/08/23 06/08/23 06/08/23 09:17 09:17 09:17 Fasting Glucose Hgb A1c (Clinic) Hemoglobin A1c % Cholesterol 233 H LDL Cholesterol, C alc 157 H Total Testosterone 147 L [facility] Surgical History History of back surgery AICD (automatic cardioverter/defibrillator) present Family History Father COPD (chronic obstructive pulmonary disease) CAD (coronary artery disease) Mother No problems noted. Social History Housing: House Patient Tobacco Use Status: Never used Tobacco Tobacco use type: Cigarette e-Cigarette/Vaping Use: Never Used Second Hand Smoke Exposure: No Current occupational status: retired Cognitive needs: No Hearing needs: No Vision needs: Yes (glasses) Questionnaire PHQ-9 Over the last 2 weeks, how often have you been bothered by any of the following problems? 1. Little interest or pleasure in doing things: not at all 2. Feeling down, depressed, or hopeless: not at all 3. Trouble falling or staying asleep, or sleeping too much: not at all 4. Feeling tired or having little energy: not at all 5. Poor appetite or overeating: not at all 6. Feeling bad about yourself - or that you are a failure or have let yourself or your family down: not at all 7. Trouble concentrating on things, such as reading the newspaper or watching television: not at all 8. Moving or speaking so slowly that other people could have noticed. Or the opposite - being so fidgety or restless that you have been moving around a lot more than usual: not at all 9. Thoughts that you would be better off or of hurting yourself in some way: not at all Total score: 0 Depression Screening Interpretation: Negative Depression Screening Done: Yes 73520 - PHQ-9 Billing: Yes Source: Developed by Drs. Damian Justice, Thuy Mast, Jonathon Light and colleagues, with an educational emi from [employer] Thrive Questionnaire Date Thrive assessed: 07/23/23 I am a: Patient What is your living situation today?: I have a steady place to live Within the past 12 months, did the food you bought not last and you didn't have the money to get more?: Never true Within the past 12 months, did you worry whether your food would run out before you got money to buy more?: Never true Do you have trouble paying for medicines?: No Do you have trouble getting transportation to medical appointments?: No Do you have trouble paying your heating and electricity bill?: No Do you have trouble taking care of your child, family member or friend?: No Do you have trouble with day-to-day activities such as bathing, preparing meals, shopping, managing finances, etc.?: No Are you currently unemployed and looking for a job?: No Are you interested in more education?: No Please select the resources that you would like help with: None THRIVE Score: 0 AUDIT C Alcohol Use Questionnaire (AUDIT-C) 1. How often do you have a drink containing alcohol?: Monthly or less 2. How many drinks containing alcohol do you have on a typical day when you are drinking?: 1 or 2 3. How often do you have six or more drinks on one occasion?: Never Total Score: 1 MASON-7 AMB Questionnaire MASON-7 Date MASON - 7 assessed: 07/23/23 Feeling nervous, anxious, or on edge: 0 = Not at all Not being able to stop or control worryin = Not at all Worrying too much about different things: 0 = Not at all Trouble relaxin = Not at all Being so restless that it is hard to sit still: 0 = Not at all Becoming easily annoyed or irritable: 0 = Not at all Feeling afraid as if something awful might happen: 0 = Not at all Total MASON-7 score (0-4 normal; 5-9 mild; 10-14 moderate; 15-21 severe): 0 Source: Developed by Drs. Damian Justice, Thuy Mast, Jonathon Light and colleagues, with an educational emi from [employer] MASON-7 Assessment Billing MASON-7 Assessment Tool: MASON-7 Assessment 01470 Review of Systems Const Denies headache(s) Eyes Denies loss of vision ENT Denies vertigo, Denies dizziness, Denies headache(s) and Denies sore throat Card Denies chest pain, Denies leg edema and Denies lightheadedness Resp Denies cough, Denies hemoptysis and Denies wheezing GI Denies abdominal pain, Denies melena, Denies constipation, Denies diarrhea and Denies vomiting Denies dysuria, Denies urinary frequency and Denies urinary urgency Musc Denies arthralgias, Denies joint swelling, Denies numbness and Denies tingling Neuro Denies behavioral changes, Denies vertigo, Denies dizziness, Denies headache(s), Denies loss of vision, Denies memory loss, Denies numbness and Denies tingling Psych Denies anxiety, Denies behavioral changes, Denies depression, Denies memory loss and Denies panic attacks Hector/Lymph Denies easy bleeding and Denies easy bruising Aller/Immun Denies wheezing Physical exam (Primary Care) Tobacco/Smoking Status: Tobacco use Status Tobacco use date assessed 07/23/23 07/23/23 08:45 Patient Tobacco Use Status Never used Tobacco 07/23/23 08:45 Tobacco use type Cigarette 07/23/23 08:45 e-Cigarette/Vaping Use Never Used 07/23/23 08:45 PHQ-9: PHQ-9 Score PHQ-9: Total score 0 07/23/23 10:08 Depression Screening Interpretation: Negative Thrive Assessment: Date of Thrive Assessment Date Thrive assessed 07/23/23 07/23/23 08:45 Telehealth Telehealth Location of provider rendering services: practice address Location of patient: address on file Patient Identification confirmed using: Name, : Yes Telehealth method: voice only Patient verbally consented to treatment: Yes Patient verbally consented to billing insurance company: Yes Patient informed of any privacy concerns related to visit: Yes Minutes spent on Phone/Video with Pt.: 15 Assessment and Plan Assessment & Plan (1) DMII (diabetes mellitus, type 2): Code(s): E11.9 - Type 2 diabetes mellitus without complications Qualifiers: Diabetes mellitus complication detail: with polyneuropathy Diabetes mellitus complication status: with neurologic complications Diabetes mellitus alf insulin use: without alf use Qualified Code(s): E11.42 - Type 2 diabetes mellitus with diabetic polyneuropathy Plan: Patient's diabetes suboptimally controlled. Most recent A1c at 9.2. Has been consistent with his Lantus 15 units and has been started on Trulicity 0.75 mg which has been helpful. Will continue to hold glipizide. He does report losing weight and sugars have been bit better... He is interested in increasing dose of Trulicity to 1.5 mg weekly for added benefit of weight loss and better glucose control. A1c is to be below 7.0. (2) Dilated cardiomyopathy: Comment: Nonischemic dilated cardiomyopathy with left ventricular ejection fraction approximately 35-50% on serial echocardiograms, he is status post biventricular ICD placement with an arterial lead revision done in 2017 Code(s): I42.0 - Dilated cardiomyopathy Plan: As per HPI patient is followed by Dr. Yoon his cardiac electric scientist propagator. Has a ICD placed. He does report often having episodes of profuse sweating on minimal exertion. He will follow up with his windows security engineer about doing echocardiogram and cardiac stress test. (3) HTN (hypertension): Code(s): I10 - Essential (primary) hypertension Qualifiers: Hypertension type: primary hypertension Qualified Code(s): I10 - Essential (primary) hypertension Plan: Will continue him on his current dose of lisinopril and metoprolol. Goal blood pressures to be below 140/90 (4) AICD (automatic cardioverter/defibrillator) present: Code(s): Z95.810 - Presence of automatic (implantable) cardiac defibrillator Plan: Patient followed by Dr. Yoon tractor technician (5) HLD (hyperlipidemia): Code(s): E78.5 - Hyperlipidemia, unspecified Qualifiers: Hyperlipidemia type: mixed hyperlipidemia Qualified Code(s): E78.2 - Mixed hyperlipidemia Plan: Patient's most recent lipid panel showing elevated total cholesterol and LDL for his cardiovascular risk as a diabetic. He has not been able to tolerate statin. Advised to speak with his windows security engineer about trial injections to help reduce his LDL thus cardiovascular risk. (6) Left SNHL: Code(s): H90.5 - Unspecified sensorineural hearing loss Qualifiers: Contralateral hearing status: restricted hearing on contralateral side Qualified Code(s): H90.A22 - Sensorineural hearing loss, unilateral, left ear, with restricted hearing on the contralateral side Plan: Did get audiological testing that did show sensorineural hearing loss worse on the left side. Placed referral into ENT specialty to evaluate his sensorineural hearing loss and need for amplification. Orders: Orders Microalbumin, Random (w Creat) 07/23/23 I10 - Essential (primary) hypertension Lipid Panel 07/23/23 E78.2 - Mixed hyperlipidemia Hemoglobin A1c 07/23/23 E11.42 - Type 2 diabetes mellitus with diabetic polyneuropathy Comprehensive [place]. Panel Fast 07/23/23 E11.42 - Type 2 diabetes mellitus with diabetic polyneuropathy Medications: New gabapentin 300 mg PO BID 30 days 60 caps 3RF E11.42 - Type 2 diabetes mellitus with diabetic polyneuropathy dulaglutide (Trulicity) 1.5 mg (0.5 mL) subcut QWEEK 4 weeks 2 mL 3RF E11.42 - Type 2 diabetes mellitus with diabetic polyneuropathy Discontinued gabapentin Discontinued Reason: Doctor's Order 100 mg PO BID 30 days 60 caps 3RF E11.42 - Type 2 diabetes mellitus with diabetic polyneuropathy Coding Level of Care Code Tele Est Pt Level 4 (98457) Diagnoses Type 2 diabetes mellitus with diabetic polyneuropathy, without long-term current use of insulin E11.42 Diabetes mellitus complication detail: with polyneuropathy Diabetes mellitus complication status: with neurologic complications Diabetes mellitus alf insulin use: without 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
== END 2023-07-23 10:09 | disposition home or self-care (01) ==
LOC: HO.HMGH 08:46
PROVIDERS: PCP Physician Assistant; Visit Provider Physician Assistant
DX: E11.42 Type 2 diabetes mellitus with diabetic polyneuropathy (principal); I42.0 Dilated cardiomyopathy; I10 Essential (primary) hypertension; Z95.810 Presence of automatic (implantable) cardiac defibrillator; E78.2 Mixed hyperlipidemia; H90.A22 Sensorineural hearing loss, unilateral, left ear, with restricted hearing on the contralateral side
CPT/HCPCS: G2252

== ENCOUNTER 2023-08-20 07:50 | Outpatient (REF) | payer MEDICARE, SELFPAY ==
[2023-08-20 08:32] LABS: Estimated Average Glucose 169 mg/dL; Hemoglobin A1c % 7.5 % (<6.0)
[2023-08-20 09:01] LABS: Alanine Aminotransferase 18 U/L (0-40); Albumin Level 3.7 g/dL (3.5-5.0); Alkaline Phosphatase 50 U/L (39-117); Anion Gap 13 (12-20); Aspartate Amino Transferase 15 U/L (5-37); Bilirubin Total 0.4 mg/dL (0.0-1.0); Blood Urea Nitrogen 19 mg/dL (9-16); Calcium 9.1 mg/dL (8.4-10.2); Carbon Dioxide 26 mmol/L (22-29); Chloride 106 mmol/L (96-108); Cholesterol 220 mg/dL (<200); Estimated Glomerular Filt Rate > 60; Glucose Fasting 149 mg/dL (60-99); HDL Cholesterol 52 mg/dL (>40); LDL Cholesterol Calculated 133 mg/dL (<100); Potassium 4.3 mmol/L (3.3-5.1); Sodium 141 mmol/L (135-145); Total Protein 6.8 g/dL (6.5-8.0); Triglycerides 175 mg/dL (<150)
[2023-08-20 09:33] LABS: Creatinine Urine 102.49 mg/dL; Microalbum/Creatinine Ratio Ur 4.8 ug/mg cr (<30)
== END 2023-08-20 07:51 | disposition home or self-care (01) ==
LOC: HO.LAB 07:50
PROVIDERS: PCP Physician Assistant; Visit Provider Physician Assistant
DX: E11.42 Type 2 diabetes mellitus with diabetic polyneuropathy (principal); E78.2 Mixed hyperlipidemia; I10 Essential (primary) hypertension
CPT/HCPCS: 36415; 80053; 80061; 82043; 82570; 83036

== ENCOUNTER 2023-10-08 14:20 | Outpatient (AMB) | payer MEDICARE, SELFPAY ==
--- NOTE | 2023-10-08 14:49 | MHC.PC.OV ---
Vital Signs 10/08/23 14:50 Height 6 ft 3 in Weight 354 lb 6 oz BMI 44.3 BP 138/88 Blood Pressure Location Lt brachial Position Sitting Respiration 16 Pulse 77 Pulse Source Pulse Oximeter Pulse Oximetry (%) 97 Oxygen Delivery Method Room Air Intake Visit Reasons: Discuss ENT referral Intake Clerk Required: No Accompanied by: Self / Same As Patient Allergies atorvastatin [From LIPITOR] Allergy (Unknown, Verified 10/08/23 15:15) TONGUE SWELLING indomethacin [From INDOCIN] Allergy (Unknown, Verified 10/08/23 15:15) ANAPHYLAXIS Iodinated Contrast Media [IV CONTRAST] Allergy (Unknown, Verified 10/08/23 15:15) VOMITTING metformin Adverse Reaction (Intermediate, Uncoded 10/08/23 14:51) GI upset Medication List - Last Reconciled 10/08/23 by Miguel Willoughby PA-C acetaminophen ER (Tylenol Arthritis Pain) 1,300 mg (2 x 650 mg) PO Q8H PRN allopurinol 300 mg PO DAILY 30 days blood-glucose sensor ([employer] Michelle 3 Sensor device) As directed CPAP (CPAP Machine/Device) As directed dulaglutide (Trulicity) 1.5 mg (0.5 mL) subcut QWEEK 4 weeks flash glucose scanning reader ([employer] Michelle 2 Carnation) As directed flash glucose sensor (FreeStyle Michelle 2 Sensor kit) As directed gabapentin 300 mg PO BID 30 days gemfibrozil 600 mg PO BID 30 days glipizide 5 mg PO DAILY 30 days ibuprofen 800 mg PO Q8H PRN 15 days insulin glargine (Lantus Solostar U-100 Insulin) 15 units (0.15 mL) subcut QPM 30 days lisinopril 20 mg PO DAILY 90 days metoprolol succinate ER 25 mg PO DAILY 90 days pen needle, diabetic (BD Ultra-Fine Maddie Pen Needle) As directed sildenafil 100 mg PO DAILY PRN 5 days testosterone 2 pumps topical DAILY 30 days Tobacco use date assessed: 07/23/23 Fall risk assessment: No Falls in past year Last assessed Fall Risk: 10/08/23 Dental Screening Dental Screen Date: 07/23/23 HPI Discuss ENT referral HPI Details Patient is a 68-year-old male here today for a follow-up visit..? Patient has a past medical history significant for cardiac arrhythmia and has an AICD placed, type 2 diabetes, gout,? TERRENCE, hypertension, hypogonadism. --concern> did audiological testing and does have central narrowing hearing loss in left ear. He is anticipating seeing ENT specialty for hearing aids.. Type 2 diabetes:? Most recent A1c is 7.5. . Has been started on Trulicity 0.75 weekly, interested in increasing the dose to 3 mg weekly. He has lost about 11 lb over the last few months on GLP 1. Reports his sugars have been bit better. He denies any hypoglycemic events. He will work extensively on diabetic diet. Also does have neuropathy in his lower extremities that he has been taking gabapentin for. He does report feeling somewhat fatigued during the day which we attribute to his dose of gabapentin. He will reduce his gabapentin to just at night dosing. .. Hypogonadism: Found to have low testosterone at 147. Has establish care with urologist. Has started topical testosterone therapy. .. Dilated cardiomyopathy: Nonischemic dilated cardiomyopathy with left ventricular ejection fraction approximately 35-50% on serial echocardiograms, he is status post biventricular ICD placement with an arterial lead revision done in 2017. He also has had a cardiac catheterization showing no significant atherosclerosis of the coronary arteries. ?Patient followed by Cardiology.? He reports recently having a few episodes of profuse sweating on minimal exertion..? Has called his associate principal and has an appointment coming this coming month. Of note does very elevated total cholesterol and LDL though has not been able to tolerate statin therapy.? Advised to talk to his associate principal about Praulent injection. .. Obesity:? Continues to suffer from morbid obesity though has been working very hard on trying to lose weight . He reports since starting GLP 1 he has lost weight Laboratory Tests 08/20/23 08:15 Fasting Glucose 149 H Hemoglobin A1c % 7.5 H COUNT INCLUDES [facility] Surgical History History of back surgery AICD (automatic cardioverter/defibrillator) present Family History Father COPD (chronic obstructive pulmonary disease) CAD (coronary artery disease) Mother No problems noted. Social History Housing: House Patient Tobacco Use Status: Never used Tobacco Tobacco use type: Cigarette e-Cigarette/Vaping Use: Never Used Second Hand Smoke Exposure: No Current occupational status: retired Cognitive needs: No Hearing needs: No Vision needs: Yes (glasses) Questionnaire Thrive Questionnaire Date Thrive assessed: 07/23/23 MASON-7 AMB Questionnaire MASON-7 Date MASON - 7 assessed: 07/23/23 Source: Developed by Drs. Damian Justice, Thuy Mast, Jonathon Light and colleagues, with an educational emi from [employer]. Review of Systems Const Denies headache(s) Eyes Denies loss of vision ENT Denies vertigo, Denies dizziness, Denies headache(s) and Denies sore throat Card Denies chest pain, Denies leg edema and Denies lightheadedness Resp Denies cough, Denies hemoptysis and Denies wheezing GI Denies abdominal pain, Denies melena, Denies constipation, Denies diarrhea and Denies vomiting Denies dysuria, Denies urinary frequency and Denies urinary urgency Musc Denies arthralgias, Denies joint swelling, Denies numbness and Denies tingling Neuro Denies Abnormal speech present, Denies behavioral changes, Denies vertigo, Denies dizziness, Denies headache(s), Denies loss of vision, Denies memory loss, Denies numbness and Denies tingling Psych Denies anxiety, Denies behavioral changes, Denies depression, Denies memory loss and Denies panic attacks Hector/Lymph Denies easy bleeding and Denies easy bruising Aller/Immun Denies wheezing Physical exam (Primary Care) Vital Signs: Last Vital Signs Pulse 77 10/08/23 14:50 Resp 16 10/08/23 14:50 BP 138/88 10/08/23 14:50 Pulse Ox 97 10/08/23 14:50 Oxygen Delivery Method Room Air 10/08/23 14:50 BMI result Body Mass Index 44.3 Tobacco/Smoking Status: Tobacco use Status Tobacco use date assessed 07/23/23 10/08/23 14:52 Patient Tobacco Use Status Never used Tobacco 10/08/23 14:52 Tobacco use type Cigarette 10/08/23 14:52 e-Cigarette/Vaping Use Never Used 10/08/23 14:52 Thrive Assessment: Date of Thrive Assessment Date Thrive assessed 01/18/24 04/04/24 14:52 Const General: healthy appearing, no acute distress, alert and awake Nutritional Appearance: well nourished Orientation/consciousness: oriented to person, oriented to place and oriented to time HENMT Ears: TM's normal bilaterally General nose exam: Normal nasal mucous membranes and turbinates present Eyes Conjunctivae: conjunctivae normal Sclerae: sclerae normal Pupils: Equal, round and reactive pupils present Neck Neck: Yes no lymphadenopathy and Yes no JVD Thyroid: Thyroid normal Carotids: no bruits Resp Effort & Inspection: normal respiratory effort and not tachypneic Auscultation: no crackles, no rales, no rhonchi and no wheezes Cardio Rate: regular rate Rhythm: regular rhythm Heart sounds: no murmurs and normal S1 and S2 GI Palpation (GI): Soft to palpation, nontender, no hepatomegaly and no splenomegaly Auscultation: normal bowel sounds Skin General skin exam: no rashes or lesions noted and dry skin Neuro General: oriented to person, oriented to place and oriented to time Cranial nerves: Yes Equal, round and reactive pupils present Speech: No Abnormal speech present Gait exam (Neuro): Normal gait present Motor exam (neuro): no tremor noted Extrem Right upper extremity: full ROM Left upper extremity: full ROM Right lower extremity: full ROM; no edema Left lower extremity: full ROM; no edema Psych Mental Status: mental status grossly normal Speech and movement: Normal speech and movement present Affect: normal affect Attitude: cooperative Thought process: Normal thought process present Assessment and Plan Assessment & Plan (1) DMII (diabetes mellitus, type 2): Code(s): E11.9 - Type 2 diabetes mellitus without complications Qualifiers: Diabetes mellitus complication detail: with polyneuropathy Diabetes mellitus complication status: with neurologic complications Diabetes mellitus oysterman insulin use: without oysterman use Qualified Code(s): E11.42 - Type 2 diabetes mellitus with diabetic polyneuropathy Plan: Patient's diabetes suboptimally controlled. Most recent A1c at Will continue to hold glipizide. He does report losing weight and sugars have been bit better at 7.5 from 9.2... He is interested in increasing dose of Trulicity to 3 mg weekly for added benefit of weight loss and better glucose control. A1c is to be below 7.0. (2) Dilated cardiomyopathy: Comment: Nonischemic dilated cardiomyopathy with left ventricular ejection fraction approximately 35-50% on serial echocardiograms, he is status post biventricular ICD placement with an arterial lead revision done in 2017 Code(s): I42.0 - Dilated cardiomyopathy Plan: As per HPI patient is followed by Dr. Yoon his cardiac electric utilization management rn. Has a ICD placed. He does report often having episodes of profuse sweating on minimal exertion. He will follow up with his associate principal about doing echocardiogram and cardiac stress test. (3) HTN (hypertension): Code(s): I10 - Essential (primary) hypertension Qualifiers: Hypertension type: primary hypertension Qualified Code(s): I10 - Essential (primary) hypertension Plan: Will continue him on his current dose of lisinopril and metoprolol. Goal blood pressures to be below 140/90 (4) AICD (automatic cardioverter/defibrillator) present: Code(s): Z95.810 - Presence of automatic (implantable) cardiac defibrillator Plan: Patient followed by Dr. Yoon mechanical research engineer (5) HLD (hyperlipidemia): Code(s): E78.5 - Hyperlipidemia, unspecified Qualifiers: Hyperlipidemia type: mixed hyperlipidemia Qualified Code(s): E78.2 - Mixed hyperlipidemia Plan: Patient's most recent lipid panel showing elevated total cholesterol and LDL for his cardiovascular risk as a diabetic. He has not been able to tolerate statin. Advised to speak with his associate principal about trial injections to help reduce his LDL thus cardiovascular risk. (6) Left SNHL: Code(s): H90.5 - Unspecified sensorineural hearing loss Qualifiers: Contralateral hearing status: restricted hearing on contralateral side Qualified Code(s): H90.A22 - Sensorineural hearing loss, unilateral, left ear, with restricted hearing on the contralateral side Plan: Did get audiological testing that did show sensorineural hearing loss worse on the left side. Placed referral into ENT specialty to evaluate his sensorineural hearing loss and need for amplification. Orders: Orders Lipid Panel 10/08/23 E11.42 - Type 2 diabetes mellitus with diabetic polyneuropathy Microalbumin, Random (w Creat) 10/08/23 I10 - Essential (primary) hypertension Uric Acid 10/08/23 M10.9 - Gout, unspecified Comprehensive [place]. Panel Fast 10/08/23 E11.42 - Type 2 diabetes mellitus with diabetic polyneuropathy Complete Blood Count no Diff 10/08/23 E11.42 - Type 2 diabetes mellitus with diabetic polyneuropathy Referrals Ear/Nose/Throat Referral H90.A22 - Sensorineural hearing loss, unilateral, left ear, with restricted hearing on the contralateral side Medications: New dulaglutide (Trulicity) 3 mg (0.5 mL) subcut QWEEK 2 mL 3RF 4 weeks E11.42 - Type 2 diabetes mellitus with diabetic polyneuropathy Changed From allopurinol 300 mg PO DAILY 30 days 30 tabs 3RF M10.9 - Gout, unspecified To allopurinol 300 mg PO DAILY 90 tabs 2RF 90 days M10.9 - Gout, unspecified Discontinued glipizide Discontinued Reason: Doctor's Order 5 mg PO DAILY 30 days 30 tabs 3RF E11.9 - Type 2 diabetes mellitus without complications dulaglutide Discontinued Reason: Doctor's Order 1.5 mg (0.5 mL) subcut QWEEK 4 weeks 2 mL 3RF E11.42 - Type 2 diabetes mellitus with diabetic polyneuropathy Coding Level of Care Code Est Pt Level 4 (17052) Diagnoses Type 2 diabetes mellitus with diabetic polyneuropathy, without long-term current use of insulin Diabetes mellitus complication detail: with polyneuropathy Diabetes mellitus complication status: with neurologic complications Diabetes mellitus oysterman insulin use: without detention use Dilated cardiomyopathy I42.0 Primary hypertension I10 Hypertension type: primary hypertension AICD (automatic cardioverter/defibrillator) present Z95.810 Mixed hyperlipidemia E78.2 Hyperlipidemia type: mixed hyperlipidemia Sensorineural hearing loss (SNHL) of left ear with restricted hearing of right ear H90.A22 Contralateral hearing status: restricted hearing on contralateral side
[2023-10-08 14:50] VITALS: BP 138/88; PULSE 77; RESP 16; O2SAT 97; BMI 44.3
== END 2023-10-08 15:41 | disposition home or self-care (01) ==
PROVIDERS: PCP Physician Assistant; Visit Provider Physician Assistant
DX: E11.42 Type 2 diabetes mellitus with diabetic polyneuropathy (principal); I42.0 Dilated cardiomyopathy; E66.01 Morbid (severe) obesity due to excess calories; Z68.41 Body mass index [BMI] 40.0-44.9, adult; I10 Essential (primary) hypertension; Z95.810 Presence of automatic (implantable) cardiac defibrillator; E78.2 Mixed hyperlipidemia; H90.A22 Sensorineural hearing loss, unilateral, left ear, with restricted hearing on the contralateral side
CPT/HCPCS: 99214

== ENCOUNTER 2023-12-04 06:39 | Outpatient (REF) | payer MEDICARE, SELFPAY ==
[2023-12-04 07:41] LABS: Hematocrit 46.9 % (42.0-52.0); Hemoglobin 15.9 g/dl (14.0-18.0); Mean Corpuscular HGB Conc 33.9 g/dl (31.0-36.0); Mean Corpuscular Hemoglobin 30.1 pg (27.0-33.0); Mean Corpuscular Volume 88.8 fL (80.0-98.0); Mean Platelet Volume 10.4 fL (9.4-12.4); Platelet Count 230 X10*3/uL (160-400); Red Blood Count 5.28 X10*6/uL (4.60-5.80); Red Cell Distribution Width 13.1 % (11.0-16.0); White Blood Count 8.4 X10*3/uL (4.8-10.8)
[2023-12-04 08:02] LABS: Alanine Aminotransferase 25 U/L (0-40); Alkaline Phosphatase 54 U/L (39-117); Anion Gap 13 (12-20); Aspartate Amino Transferase 20 U/L (5-37); Bilirubin Total 0.7 mg/dL (0.0-1.0); Blood Urea Nitrogen 17 mg/dL (9-16); Calcium 9.4 mg/dL (8.4-10.2); Carbon Dioxide 24 mmol/L (22-29); Chloride 109 mmol/L (96-108); Cholesterol 234 mg/dL (<200); Estimated Glomerular Filt Rate > 60; Glucose Fasting 147 mg/dL (60-99); HDL Cholesterol 44 mg/dL (>40); LDL Cholesterol Calculated 158 mg/dL (<100); Potassium 3.9 mmol/L (3.3-5.1); Sodium 142 mmol/L (135-145); Total Protein 7.3 g/dL (6.5-8.0); Triglycerides 163 mg/dL (<150); Uric Acid 7.1 mg/dL (3.4-7.0)
[2023-12-04 14:32] LABS: Creatinine Urine 327.53 mg/dL; Microalbum/Creatinine Ratio Ur 8.5 ug/mg cr (<30)
== END 2023-12-04 06:40 | disposition home or self-care (01) ==
LOC: HO.LAB 06:39
PROVIDERS: PCP Physician Assistant; Visit Provider Physician Assistant
DX: E11.42 Type 2 diabetes mellitus with diabetic polyneuropathy (principal); M10.9 Gout, unspecified; I10 Essential (primary) hypertension
CPT/HCPCS: 36415; 80053; 80061; 82043; 82570; 84550; 85027

== ENCOUNTER 2023-12-08 13:45 | Outpatient (AMB) | payer MEDICARE, SELFPAY ==
[2023-12-08 14:16] VITALS: BP 128/82; PULSE 75; O2SAT 93; BMI 43.9
--- NOTE | 2023-12-08 14:16 | A.OFFPC_ITS ---
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: No Accompanied by: Self / Same As Patient Allergies atorvastatin [From LIPITOR] Allergy (Unknown, Verified 12/08/23 14:40) TONGUE SWELLING indomethacin [From INDOCIN] Allergy (Unknown, Verified 12/08/23 14:40) ANAPHYLAXIS Iodinated Contrast Media [IV CONTRAST] Allergy (Unknown, Verified 12/08/23 14:40) VOMITTING metformin Adverse Reaction (Intermediate, Uncoded 12/08/23 14:40) GI upset Medication List - Last Reconciled 12/08/23 by Miguel Willoughby PA-C acetaminophen ER (Tylenol Arthritis Pain) 1,300 mg (2 x 650 mg) PO Q8H PRN allopurinol 300 mg PO DAILY 90 days blood-glucose sensor (EdvertStyle Michelle 3 Sensor device) As directed CPAP (CPAP Machine/Device) As directed dulaglutide (Trulicity) 3 mg (0.5 mL) subcut QWEEK 4 weeks flash glucose scanning reader (FreeStyle Michelle 2 [place]) As directed flash glucose sensor (FreeStyle Michelle 2 Sensor kit) As directed gabapentin 300 mg PO BID 30 days gemfibrozil 600 mg PO BID 30 days ibuprofen 800 mg PO Q8H PRN 15 days insulin glargine (Lantus Solostar U-100 Insulin) 15 units (0.15 mL) subcut QPM 30 days lisinopril 20 mg PO DAILY 90 days metoprolol succinate ER 25 mg PO DAILY 90 days pen needle, diabetic (BD Ultra-Fine Maddie Pen Needle) As directed sildenafil 100 mg PO DAILY PRN 5 days testosterone 2 pumps topical DAILY 30 days Tobacco use date assessed: 07/23/23 Dental Screening Dental Screen Date: 07/23/23 HPI f/u weight check and DMII HPI Details Patient is a 68-year-old male here today for a follow-up visit..? Patient has a past medical history significant for cardiac arrhythmia and has an AICD placed, type 2 diabetes, gout,? TERRENCE, hypertension, hypogonadism. --concern> reports having some neuropath ic symptoms in his lower extremities particularly in his feet. He does use gabapentin on a daily basis with some decent affect. He has used a new device that helps the circulation in his legs which has been helpful. Will consider EMG testing if symptoms worsen. Type 2 diabetes:? Today's A1c is 6.8. He has been on Trulicity 3 mg weekly as of recently. Unfortunately can not find for pharmacy anymore. He would like to reduce down to 0.75 mg due to availability of the Trulicity. He also continues on Lantus 15 units daily. Has lost weight on GLP 1 Reports his sugars have been bit better. He denies any hypoglycemic events. He will work extensively on diabetic diet. Also does have neuropathy in his lower extremities that he has been taking gabapentin for. He does report feeling somewhat fatigued during the day which we attribute to his dose of gabapentin. .. Hypogonadism: Found to have low testosterone at 147. Has establish care with urologist unfortunately has no follow-ups, does need refill on his topical testosterone therapy. .. Dilated cardiomyopathy: Nonischemic dilated cardiomyopathy with left ventricular ejection fraction approximately 35-50% on serial echocardiograms, he is status post biventricular ICD placement with an arterial lead revision done in 2017. He also has had a cardiac catheterization showing no significant atherosclerosis of the coronary arteries. ?Patient followed by Cardiology.? He reports recently having a few episodes of profuse sweating on minimal exertion..? Has called his director educational radio and has an appointment coming this coming month. Of note does very elevated total cholesterol and LDL though has not been able to tolerate statin therapy.? Advised to talk to his director educational radio about Praulent injection. .. Obesity:? Continues to suffer from morbid obesity though has been working very hard on trying to lose weight . He reports since starting GLP 1 he has lost weight [facility] Surgical History History of back surgery AICD (automatic cardioverter/defibrillator) present Family History Father COPD (chronic obstructive pulmonary disease) CAD (coronary artery disease) Mother No problems noted. Social History Housing: House Patient Tobacco Use Status: Never used Tobacco Tobacco use type: Cigarette e-Cigarette/Vaping Use: Never Used Second Hand Smoke Exposure: No Current occupational status: retired Cognitive needs: No Hearing needs: No Vision needs: Yes (glasses) Questionnaire Thrive Questionnaire Date Thrive assessed: 07/23/23 MASON-7 AMB Questionnaire MASON-7 Date MASON - 7 assessed: 07/23/23 Source: Developed by Drs. Damian Justice, Thuy Mast, Jonathon Light and colleagues, with an educational emi from [employer]. Review of Systems Const Denies headache(s) Eyes Denies loss of vision ENT Denies vertigo, Denies dizziness, Denies headache(s) and Denies sore throat Card Denies chest pain, Denies leg edema and Denies lightheadedness Resp Denies cough, Denies hemoptysis and Denies wheezing GI Denies abdominal pain, Denies melena, Denies constipation, Denies diarrhea and Denies vomiting Denies dysuria, Denies urinary frequency and Denies urinary urgency Musc Denies arthralgias, Denies joint swelling, Denies numbness and Denies tingling Neuro Denies Abnormal speech present, Denies behavioral changes, Denies vertigo, Denies dizziness, Denies headache(s), Denies loss of vision, Denies memory loss, Denies numbness and Denies tingling Psych Denies anxiety, Denies behavioral changes, Denies depression, Denies memory loss and Denies panic attacks Hector/Lymph Denies easy bleeding and Denies easy bruising Aller/Immun Denies wheezing Physical exam (Primary Care) Vital Signs: Last Vital Signs Pulse 75 12/08/23 14:16 BP 128/82 12/08/23 14:16 Pulse Ox 93 12/08/23 14:16 Oxygen Delivery Method Room Air 12/08/23 14:16 BMI result Body Mass Index 43.9 Tobacco/Smoking Status: Tobacco use Status Tobacco use date assessed 07/23/23 12/08/23 14:19 Patient Tobacco Use Status Never used Tobacco 12/08/23 14:19 Tobacco use type Cigarette 12/08/23 14:19 e-Cigarette/Vaping Use Never Used 12/08/23 14:19 Thrive Assessment: Date of Thrive Assessment Date Thrive assessed 07/23/23 12/08/23 14:19 Const General: healthy appearing, no acute distress, alert and awake Nutritional Appearance: well nourished Orientation/consciousness: oriented to person, oriented to place and oriented to time HENMT Ears: TM's normal bilaterally General nose exam: Normal nasal mucous membranes and turbinates present Eyes Conjunctivae: conjunctivae normal Sclerae: sclerae normal Pupils: Equal, round and reactive pupils present Neck Neck: Yes no lymphadenopathy and Yes no JVD Thyroid: Thyroid normal Carotids: no bruits Resp Effort & Inspection: normal respiratory effort and not tachypneic Auscultation: no crackles, no rales, no rhonchi and no wheezes Cardio Rate: regular rate Rhythm: regular rhythm Heart sounds: no murmurs and normal S1 and S2 GI Palpation (GI): Soft to palpation, nontender, no hepatomegaly and no splenomegaly Auscultation: normal bowel sounds Skin General skin exam: no rashes or lesions noted and dry skin Neuro General: oriented to person, oriented to place and oriented to time Cranial nerves: Yes Equal, round and reactive pupils present Speech: No Abnormal speech present Gait exam (Neuro): Normal gait present Motor exam (neuro): no tremor noted Extrem Right upper extremity: full ROM Left upper extremity: full ROM Right lower extremity: full ROM; no edema Left lower extremity: full ROM; no edema Psych Mental Status: mental status grossly normal Speech and movement: Normal speech and movement present Affect: normal affect Attitude: cooperative Thought process: Normal thought process present Results AMB Hemoglobin A1c AMB Hemoglobin A1c 6.8 % Last Edit by Betty Teixeira on 12/08/23 14:40 Results Reviewed Results Reviewed: Laboratory Last Values Hgb A1c (Clinic) 6.8 % (4.0-6.0) H 12/08/23 14:08 Assessment and Plan Assessment & Plan (1) DMII (diabetes mellitus, type 2): Code(s): E11.9 - Type 2 diabetes mellitus without complications Qualifiers: Diabetes mellitus complication detail: with polyneuropathy Diabetes mellitus complication status: with neurologic complications 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 Today's A1c at 6.8 from 7.5 He is now off glipizide, continues on Trulicity 3 mg though due to high demand can not find from pharmacy. Will reduce down to 0.75 as it is available. Continues on Lantus 15 units daily. . A1c is to be below 7.0. (2) Dilated cardiomyopathy: Comment: Nonischemic dilated cardiomyopathy with left ventricular ejection fraction approximately 35-50% on serial echocardiograms, he is status post biventricular ICD placement with an arterial lead revision done in 2017 Code(s): I42.0 - Dilated cardiomyopathy Plan: As per HPI patient is followed by Dr. Yoon his cardiac electric hiv prevention specialist. Has a ICD implant in in his not no discharges.. (3) HTN (hypertension): Code(s): I10 - Essential (primary) hypertension Qualifiers: Hypertension type: primary hypertension Qualified Code(s): I10 - Ess ential (primary) hypertension Plan: Will continue him on his current dose of lisinopril and metoprolol. Goal blood pressures to be below 140/90 (4) AICD (automatic cardioverter/defibrillator) present: Code(s): Z95.810 - Presence of automatic (implantable) cardiac defibrillator Plan: Patient followed by Dr. Yoon senior accounting clerk. Has not had any discharges (5) HLD (hyperlipidemia): Code(s): E78.5 - Hyperlipidemia, unspecified Qualifiers: Hyperlipidemia type: mixed hyperlipidemia Qualified Code(s): E78.2 - Mixed hyperlipidemia Plan: Patient's most recent lipid panel showing elevated total cholesterol and LDL for his cardiovascular risk as a diabetic. He has not been able to tolerate statin. Advised to speak with his director educational radio about trial injections to help reduce his LDL thus cardiovascular risk. Goal LDL to be below 100 (6) Left SNHL: Code(s): H90.5 - Unspecified sensorineural hearing loss Qualifiers: Contralateral hearing status: restricted hearing on contralateral side Qualified Code(s): H90.A22 - Sensorineural hearing loss, unilateral, left ear, with restricted hearing on the contralateral side Plan: Did get audiological testing that did show sensorineural hearing loss worse on the left side. Has upcoming appointment with ENT in March of 2024. Orders: Orders Comprehensive [place]. Panel Fast Today E11.42 - Type 2 diabetes mellitus with diabetic polyneuropathy Lipid Panel Today E78.1 - Pure hyperglyceridemia AMB Hemoglobin A1c Today E11.42 - Type 2 diabetes mellitus with diabetic polyneuropathy Complete Blood Count no Diff Today E11. - Type 2 diabetes mellitus with diabetic polyneuropathy Testosterone, Free/Total Today E29.1 - Testicular hypofunction Medications: New dulaglutide (Trulicity) 0.75 mg (0.5 mL) subcut QWEEK 2 mL 3RF 4 weeks - Type 2 diabetes mellitus with diabetic polyneuropathy Refilled dulaglutide (Trulicity) 3 mg (0.5 mL) subcut QWEEK 2 mL 3RF 4 weeks - Type 2 diabetes mellitus with diabetic polyneuropathy testosterone apply 2 pumps over max area - alternate shoulders on alternate days 2 pumps topical DAILY 75 grams 1RF 30 days E29.1 - Testicular hypofunction, R79.89 - Other specified abnormal findings of blood chemistry Patient Instructions: Goal: A1c to be below 7.0, LDL to be below 100 Barriers: Adherence to physical activity and healthy eating habits Coding Level of Care Code Est Pt Level 4 (63971) Complex EM visit Add On G2211 Diagnoses Type 2 diabetes mellitus with diabetic polyneuropathy, without long-term current use of insulin Diabetes mellitus complication detail: with polyneuropathy Diabetes mellitus complication status: with neurologic complications Diabetes mellitus fci insulin use: without machine setter and repairer use Dilated cardiomyopathy I42.0 Primary hypertension I10 Hypertension type: primary hypertension AICD (automatic cardioverter/defibrillator) present Z95.810 Mixed hyperlipidemia E78.2 Hyperlipidemia type: mixed hyperlipidemia Sensorineural hearing loss (SNHL) of left ear with restricted hearing of right ear H90.A22 Contralateral hearing status: restricted hearing on contralateral side
== END 2023-12-08 15:04 | disposition home or self-care (01) ==
PROVIDERS: PCP Physician Assistant; Visit Provider Physician Assistant
DX: E11.42 Type 2 diabetes mellitus with diabetic polyneuropathy (principal); I42.0 Dilated cardiomyopathy; I10 Essential (primary) hypertension; Z95.810 Presence of automatic (implantable) cardiac defibrillator; E78.2 Mixed hyperlipidemia; H90.A22 Sensorineural hearing loss, unilateral, left ear, with restricted hearing on the contralateral side
CPT/HCPCS: 83036; 99214; G2211

== ENCOUNTER 2024-03-09 14:01 | Outpatient (AMB) | payer MEDICARE, SELFPAY ==
[2024-03-09 14:19] VITALS: BP 142/86; PULSE 75; O2SAT 95; BMI 43.3
--- NOTE | 2024-03-09 14:19 | A.OFFPC_ITS ---
Vital Signs 3 03/09/24 14:19 Height 6 ft 3 in Weight 346 lb 2 oz BMI 43.3 BP 142/86 H Blood Pressure Location Lt brachial Position Sitting Pulse 75 Pulse Source Pulse Oximeter Pulse Oximetry (%) 95 Oxygen Delivery Method Room Air Intake Visit Reasons: f/u diabetes Comedian Required: No Accompanied by: Self / Same As Patient Allergies atorvastatin [From LIPITOR] Allergy (Unknown, Verified 03/09/24 14:26) TONGUE SWELLING indomethacin [From INDOCIN] Allergy (Unknown, Verified 03/09/24 14:26) ANAPHYLAXIS Iodinated Contrast Media [IV CONTRAST] Allergy (Unknown, Verified 03/09/24 14:26) VOMITTING metformin Adverse Reaction (Intermediate, Uncoded 03/09/24 14:26) GI upset Medication List - Last Reconciled 03/09/24 by Miguel Willoughby PA-C acetaminophen ER (Tylenol Arthritis Pain) 1,300 mg (2 x 650 mg) PO Q8H PRN allopurinol 300 mg PO DAILY 90 days blood-glucose sensor ([employer] Michelle 3 Sensor device) As directed CPAP (CPAP Machine/Device) As directed dulaglutide (Trulicity) 3 mg (0.5 mL) subcut QWEEK 4 weeks flash glucose scanning reader (FreeStyle Michelle 2 Dillard) As directed flash glucose sensor (FreeStyle Michelle 2 Sensor kit) As directed gabapentin 300 mg PO BID 30 days gemfibrozil 600 mg PO BID 30 days ibuprofen 800 mg PO Q8H PRN 15 days insulin glargine (Lantus Solostar U-100 Insulin) 15 units (0.15 mL) subcut QPM 30 days lisinopril 20 mg PO DAILY 90 days metoprolol succinate ER 25 mg PO DAILY 90 days pen needle, diabetic (BD Ultra-Fine Maddie Pen Needle) As directed sildenafil 100 mg PO DAILY PRN 5 days testosterone 2 pumps topical DAILY 30 days Tobacco use date assessed: 07/23/23 Fall risk assessment: No Falls in past year Last assessed Fall Risk: 03/09/24 Dental Screening Dental Screen Date: 07/23/23 HPI f/u diabetes 2 HPI0 Details Patient is a 69-year-old male here today for a follow-up visit..? Patient has a past medical history significant for cardiac arrhythmia and has an AICD placed, type 2 diabetes, gout,? TERRENCE, hypertension, hypogonadism. --concern> reports having some neuropath ic symptoms in his lower extremities particularly in his feet. He does use gabapentin on a daily basis with some decent affect. He has used a new device that helps the circulation in his legs which has been helpful. He is still considering getting an EMG to evaluate the extent of his neuropathy. He is interested in diabetic shoes to perhaps help his neuropathy.. Type 2 diabetes:? Today's A1c is . He has been back on Trulicity 3 mg weekly as of recently. Recent A1c slightly above 7.0 and he does report some dietary indiscretion over the last couple of months. Reports his sugars have been bit better. He denies any hypoglycemic events. Also does have neuropathy in his lower extremities that he has been taking gabapentin for. He does report feeling somewhat fatigued during the day which we attribute to his dose of gabapentin. .. Hypogonadism: Found to have low testosterone at 147. Has establish care with urologist unfortunately has no follow-ups, does need refill on his topical testosterone therapy. .. Dilated cardiomyopathy: Nonischemic dilated cardiomyopathy with left ventricular ejection fraction approximately 35-50% on serial echocardiograms, he is status post biventricular ICD placement with an arterial lead revision done in 2017. He also has had a cardiac catheterization showing no significant atherosclerosis of the coronary arteries. ?Patient followed by Cardiology.? He reports recently having a few episodes of profuse sweating on minimal exertion..? Has called his residential assistant and has an appointment coming this coming month. Of note does very elevated total cholesterol and LDL though has not been able to tolerate statin therapy.? Advised to talk to his residential assistant about Praulent injection. .. Obesity:? Continues to suffer from morbid obesity though has been working very hard on trying to lose weight . He reports since starting GLP 1 he has lost weight. Laboratory Tests 06/08/23 08/20/23 12/04/23 09:17 08:15 06:43 Hgb 15.9 Creatinine 0.94 Fasting Glucose 149 H 147 H Hgb A1c (Clinic) Uric Acid 7.1 H Cholesterol 220 H 234 H LDL Cholesterol, C alc 133 H 158 H Total Testosterone 147 L Urine Microalbumin 12/04/23 12/08/23 12:00 14:08 Hgb Creatinine Fasting Glucose Hgb A1c (Clinic) 6.8 H Uric Acid Cholesterol LDL Cholesterol, C alc Total Testosterone Urine Microalbumin 28.0 PFSH Surgical History History of back surgery AICD (automatic cardioverter/defibrillator) present Family History Father COPD (chronic obstructive pulmonary disease) CAD (coronary artery disease) Mother No problems noted. Social History Housing: House Patient Tobacco Use Status: Never used Tobacco Tobacco use type: Cigarette e-Cigarette/Vaping Use: Never Used Second Hand Smoke Exposure: No Current occupational status: retired Cognitive needs: No Hearing needs: No Vision needs: Yes (glasses) Questionnaire Thrive Questionnaire Date Thrive assessed: 07/23/23 MASON-7 AMB Questionnaire MASON-7 Date MASON - 7 assessed: 07/23/23 Source: Developed by Drs. Damian Justice, Thuy Mast, Jonathon Light and colleagues, with an educational emi from [employer]. Review of Systems Const Denies headache(s) Eyes Denies loss of vision ENT Denies vertigo, Denies dizziness, Denies headache(s) and Denies sore throat Card Denies chest pain, Denies leg edema and Denies lightheadedness Resp Denies cough, Denies hemoptysis and Denies wheezing GI Denies abdominal pain, Denies melena, Denies constipation, Denies diarrhea and Denies vomiting Denies dysuria, Denies urinary frequency and Denies urinary urgency Musc Denies arthralgias, Denies joint swelling, Denies numbness and Denies tingling Neuro Denies Abnormal speech present, Denies behavioral changes, Denies vertigo, Denies dizziness, Denies headache(s), Denies loss of vision, Denies memory loss, Denies numbness and Denies tingling Psych Denies anxiety, Denies behavioral changes, Denies depression, Denies memory loss and Denies panic attacks Hector/Lymph Denies easy bleeding and Denies easy bruising Aller/Immun Denies wheezing Physical exam (Primary Care) Vital Signs: Last Vital Signs Pulse 75 03/09/24 14:19 BP 142/86 H 03/09/24 14:19 Pulse Ox 95 03/09/24 14:19 Oxygen Delivery Method Room Air 03/09/24 14:19 BMI result Body Mass Index 43.3 Tobacco/Smoking Status: Tobacco use Status Tobacco use date assessed 07/23/23 03/09/24 14:19 Patient Tobacco Use Status Never used Tobacco 03/09/24 14:19 Tobacco use type Cigarette 03/09/24 14:19 e-Cigarette/Vaping Use Never Used 03/09/24 14:19 Thrive Assessment: Date of Thrive Assessment Date Thrive assessed 07/23/23 03/09/24 14:19 Const General: healthy appearing, no acute distress, alert and awake Nutritional Appearance: well nourished Orientation/consciousness: oriented to person, oriented to place and oriented to time HENMT Ears: TM's normal bilaterally General nose exam: Normal nasal mucous membranes and turbinates present Eyes Conjunctivae: conjunctivae normal Sclerae: sclerae normal Pupils: Equal, round and reactive pupils present Neck Neck: Yes no lymphadenopathy and Yes no JVD Thyroid: Thyroid normal Carotids: no bruits Resp Effort & Inspection: normal respiratory effort and not tachypneic Auscultation: no crackles, no rales, no rhonchi and no wheezes Cardio Rate: regular rate Rhythm: regular rhythm Heart sounds: no murmurs and normal S1 and S2 GI Palpation (GI): Soft to palpation, nontender, no hepatomegaly and no splenomegaly Auscultation: normal bowel sounds Skin General skin exam: no rashes or lesions noted and dry skin Neuro General: oriented to person, oriented to place and oriented to time Cranial nerves: Yes Equal, round and reactive pupils present Speech: No Abnormal speech present Gait exam (Neuro): Normal gait present Motor exam (neuro): no tremor noted Extrem Right upper extremity: full ROM Left upper extremity: full ROM Right lower extremity: full ROM; no edema Left lower extremity: full ROM; no edema Ankle/foot/toe images: 2 1. DECREASED SENSATION TO LIGHT TOUCH, NO SKIN BREAKDOWN OR ULCERS NOTED. Psych Mental Status: mental status grossly normal Speech and movement: Normal speech and movement present Affect: normal affect Attitude: cooperative Thought process: Normal thought process present Results AMB Hemoglobin A1c 2 AMB Hemoglobin A1c 7.0 % Last Edit by YANETH Gomez on 03/09/24 14:50 Results Reviewed Results Reviewed: Laboratory Last Values Hgb A1c (Clinic) 7.0 % (4.0-6.0) H 03/09/24 14:10 Assessment and Plan Assessment & Plan (1) DMII (diabetes mellitus, type 2): Code(s): E11.9 - Type 2 diabetes mellitus without complications Qualifiers: Diabetes mellitus complication detail: with polyneuropathy Diabetes mellitus complication status: with neurologic complications Diabetes mellitus extermination inspector insulin use: without senior living use Qualified Code(s): E11.42 - Type 2 diabetes mellitus with diabetic polyneuropathy Plan: Patient's diabetes is controlled with A1c 7.0. He will work extensively on dietary modifications. He is now Trulicity 3 mg weekly and continues his Lantus 15 units. He has lost some weight since last office visit. He does continue to use a continues glucose monitoring that helps him with some behavioral glycemic control as well. . FAR HIS DIABETIC NEUROPATHY CONTINUES TO EPISODES OF BILATERAL FEET NUMBNESS AND DIFFICULTY AMBULATING MOSTLY TOWARD THE END OF THE DAY. HE DOES GET GABAPENTIN DOES NOT SURE THIS REALLY HELPS. OF NOTE DOES HAVE SOME DECREASED SENSATION TO LIGHT TOUCH BILATERAL PLANTAR REGIONS.. HE IS INTERESTED IN GETTING SOME DIABETIC SHOES A1c is to be below 7.0. (2) Dilated cardiomyopathy: Comment: Nonischemic dilated cardiomyopathy with left ventricular ejection fraction approximately 35-50% on serial echocardiograms, he is status post biventricular ICD placement with an arterial lead revision done in 2017 Code(s): I42.0 - Dilated cardiomyopathy Plan: As per HPI patient is followed by Dr. Yoon his cardiac electric water pumper. Has a ICD implant in in his not no discharges He does report at occasion having some short-lived chest pain. He continues to goal several times a week without any trouble. He also does report having some chest congestion at times in his interested in perhaps trying an albuterol inhaler. We did discuss the possibility of tachycardia with albuterol and will hold off and ask his electrophysiology/residential assistant about this. (3) HTN (hypertension): Code(s): I10 - Essential (primary) hypertension Qualifiers: Hypertension type: primary hypertension Qualified Code(s): I10 - Essential (primary) hypertension Plan: Will continue him on his current dose of lisinopril and metoprolol. Goal blood pressures to be below 140/90 (4) AICD (automatic cardioverter/defibrillator) present: Code(s): Z95.810 - Presence of automatic (implantable) cardiac defibrillator Plan: Patient followed by Dr. Yoon maintenance controller. Has not had any discharges (5) HLD (hyperlipidemia): Code(s): E78.5 - Hyperlipidemia, unspecified Qualifiers: Hyperlipidemia type: mixed hyperlipidemia Qualified Code(s): E78.2 - Mixed hyperlipidemia Plan: Patient's most recent lipid panel showing elevated total cholesterol and LDL for his cardiovascular risk as a diabetic. He has not been able to tolerate statin. Advised to speak with his residential assistant about trial injections to help reduce his LDL thus cardiovascular risk. Goal LDL to be below 100 Orders: Orders 2 Comprehensive [place]. Panel Fast 03/09/24 E11.42 - Type 2 diabetes mellitus with diabetic polyneuropathy AMB Hemoglobin A1c 03/09/24 E11.42 - Type 2 diabetes mellitus with diabetic polyneuropathy Lipid Panel 03/09/24 E78.2 - Mixed hyperlipidemia Complete Blood Count no Diff 03/09/24 E11.42 - Type 2 diabetes mellitus with diabetic polyneuropathy Medications: New 2 miscellaneous medical supply NEED FOR DIABETIC SHOES SIZE 13 1 ea miscellaneous DAILY 99 days 2 ea 0RF E11.42 - Type 2 diabetes mellitus with diabetic polyneuropathy Refilled 2 dulaglutide (Trulicity) 3 mg (0.5 mL) subcut QWEEK 4 weeks 2 mL 3RF E11.42 - Type 2 diabetes mellitus with diabetic polyneuropathy lisinopril 20 mg PO DAILY 90 days 90 tabs 1RF I10 - Essential (primary) hypertension insulin glargine (Lantus Solostar U-100 Insulin) 15 units (0.15 mL) subcut QPM 30 days 15 mL 1RF E11.42 - Type 2 diabetes mellitus with diabetic polyneuropathy metoprolol succinate ER 25 mg PO DAILY 90 days 90 tabs 1RF I10 - Essential (primary) hypertension, M10.9 - Gout, unspecified gabapentin 300 mg PO BID 30 days 60 caps 3RF E11.42 - Type 2 diabetes mellitus with diabetic polyneuropathy ibuprofen 800 mg PO Q8H 15 days PRN 45 tabs 1RF pain M54.9 - Dorsalgia, unspecified Patient Instructions: Goal: A1c to remain below 7.0, LDL to be below 100 Barriers: Adherence to physical activity and healthy eating habits Coding Level of Care Code Est Pt Level 4 (06281) Diagnoses Type 2 diabetes mellitus with diabetic polyneuropathy, without long-term current use of insulin E11.42 Diabetes mellitus complication detail: with polyneuropathy Diabetes mellitus complication status: with neurologic complications Diabetes mellitus extermination inspector insulin use: without extermination inspector use Dilated cardiomyopathy I42.0 Primary hypertension I10 Hypertension type: primary hypertension AICD (automatic cardioverter/defibrillator) present Z95.810 Mixed hyperlipidemia E78.2 Hyperlipidemia type: mixed hyperlipidemia
== END 2024-03-09 14:47 | disposition home or self-care (01) ==
PROVIDERS: PCP Physician Assistant; Visit Provider Physician Assistant
DX: E11.42 Type 2 diabetes mellitus with diabetic polyneuropathy (principal)
CPT/HCPCS: 83036; 99214

== ENCOUNTER 2024-08-26 06:44 | Outpatient (REF) | payer MEDICARE, SELFPAY ==
[2024-08-26 07:45] LABS: Hematocrit 45.3 % (42.0-52.0); Mean Corpuscular HGB Conc 33.1 g/dl (31.0-36.0); Mean Corpuscular Hemoglobin 30.3 pg (27.0-33.0); Mean Corpuscular Volume 91.5 fL (80.0-98.0); Mean Platelet Volume 10.5 fL (9.4-12.4); Platelet Count 205 X10*3/uL (160-400); Red Blood Count 4.95 X10*6/uL (4.60-5.80); Red Cell Distribution Width 13.1 % (11.0-16.0); White Blood Count 8.5 X10*3/uL (4.8-10.8)
[2024-08-26 08:21] LABS: Alanine Aminotransferase 29 U/L (0-40); Albumin Level 3.8 g/dL (3.5-5.0); Alkaline Phosphatase 53 U/L (39-117); Anion Gap 14 (12-20); Aspartate Amino Transferase 19 U/L (5-37); Bilirubin Total 0.4 mg/dL (0.0-1.0); Blood Urea Nitrogen 21 mg/dL (9-16); Calcium 9.3 mg/dL (8.4-10.2); Carbon Dioxide 26 mmol/L (22-29); Chloride 106 mmol/L (96-108); Cholesterol 216 mg/dL (<200); Estimated Glomerular Filt Rate > 60; Glucose Fasting 150 mg/dL (60-99); HDL Cholesterol 46 mg/dL (>40); LDL Cholesterol Calculated 141 mg/dL (<100); Potassium 4.7 mmol/L (3.3-5.1); Sodium 141 mmol/L (135-145); Total Protein 7.2 g/dL (6.5-8.0); Triglycerides 147 mg/dL (<150)
[2024-09-01 13:58] LABS: Testosterone, Total 285 ng/dL (250-1100)
== END 2024-08-26 06:45 | disposition home or self-care (01) ==
LOC: HO.LAB 06:44
PROVIDERS: PCP Physician Assistant; Visit Provider Physician Assistant
DX: E11.42 Type 2 diabetes mellitus with diabetic polyneuropathy (principal); E29.1 Testicular hypofunction
CPT/HCPCS: 36415; 80053; 80061; 84402; 84403; 85027

== ENCOUNTER 2024-08-29 08:51 | Outpatient (AMB) | payer MEDICARE, SELFPAY ==
--- NOTE | 2024-08-29 09:01 | MHC.PC.OV ---
Vital Signs 08/29/24 09:03 Height 6 ft 3 in Weight 357 lb 8 oz BMI 44.7 BP 142/64 H Blood Pressure Location Lt brachial Position Sitting Pulse 74 Pulse Source Pulse Oximeter Temp 96.9 F Temp Source Temporal Artery Scan Pulse Oximetry (%) 96 Oxygen Delivery Method Room Air Intake Visit Reasons: ANNUAL/US Med DM Form/Heart Concerns Intake Note: Patient is here to follow up on DM concern. Patternmaker Wood Required: No Contact Lens Polisher: Not Required per policy Accompanied by: Self / Same As Patient Allergies atorvastatin [From LIPITOR] Allergy (Unknown, Verified 08/29/24 09:19) TONGUE SWELLING indomethacin [From INDOCIN] Allergy (Unknown, Verified 08/29/24 09:19) ANAPHYLAXIS Iodinated Contrast Media [IV CONTRAST] Allergy (Unknown, Verified 08/29/24 09:19) VOMITTING metformin Adverse Reaction (Intermediate, Uncoded 08/29/24 09:19) GI upset Medication List - Last Reconciled 08/29/24 by Miguel Willoughby PA-C acetaminophen ER (Tylenol Arthritis Pain) 1,300 mg (2 x 650 mg) PO Q8H PRN allopurinol 300 mg PO DAILY 90 days blood-glucose sensor (FreeStyle Michelle 3 Sensor device) As directed CPAP (CPAP Machine/Device) As directed dulaglutide (Trulicity) 3 mg (0.5 mL) subcut QWEEK 4 weeks flash glucose scanning reader (FreeStyle Michelle 2 [employer]) As directed flash glucose sensor (FreeStyle Michelle 2 Sensor kit) As directed gabapentin 300 mg PO BID 30 days gemfibrozil 600 mg PO BID 30 days ibuprofen 800 mg PO Q8H PRN 15 days insulin glargine (Lantus Solostar U-100 Insulin) 15 units (0.15 mL) subcut QPM 30 days lisinopril 20 mg PO DAILY 90 days metoprolol succinate ER 25 mg PO DAILY 90 days miscellaneous medical supply 1 ea miscellaneous DAILY 99 days pen needle, diabetic (BD Ultra-Fine Maddie Pen Needle) As directed sildenafil 100 mg PO DAILY PRN 5 days testosterone 2 pumps topical DAILY 30 days Tobacco use date assessed: 08/29/24 Fall risk assessment: 1 Fall in past year Last assessed Fall Risk: 08/29/24 Dental Screening Dental Screen Date: 08/29/24 Did you have a dental visit in the last 12 months?: Yes Did you have a dental problem in the last 6 months where you did not have access to dental care?: No Was dental information given to patient?: Patient has dentist HPI ANNUAL/[facility] DM Form/Heart Concerns HPI Details Patient is a 69-year-old male here today a follow up visit..? Patient has a past medical history significant for cardiac arrhythmia and has an AICD placed, type 2 diabetes, gout,? TERRENCE, hypertension, hypogonadism. --concern> reports having some neuropathic symptoms in his lower extremities particularly in his feet. He does use gabapentin on a daily basis with some decent affect. He has used a new device that helps the circulation in his legs which has been helpful. He is still considering getting an EMG to evaluate the extent of his neuropathy. He is interested in diabetic shoes to perhaps help his neuropathy.. Type 2 diabetes:? Today's A1c is . He has been back on Trulicity 3 mg weekly as of recently. Recent A1c slightly above 7.0 and he does report some dietary indiscretion over the last couple of months. Reports his sugars have been bit better. He denies any hypoglycemic events. Also does have neuropathy in his lower extremities that he has been taking gabapentin for. He does report feeling somewhat fatigued during the day which we attribute to his dose of gabapentin. .. Hypogonadism: Found to have low testosterone at 147. Has establish care with urologist unfortunately has no follow-ups, does need refill on his topical testosterone therapy. .. Dilated cardiomyopathy: Nonischemic dilated cardiomyopathy with left ventricular ejection fraction approximately 35-50% on serial echocardiograms, he is status post biventricular ICD placement with an arterial lead revision done in 2017. He also has had a cardiac catheterization showing no significant atherosclerosis of the coronary arteries. ?Patient followed by Cardiology.? He reports recently having a few episodes of profuse sweating on minimal exertion..? Has called his bill peddler and has an appointment coming this coming month. Of note does very elevated total cholesterol and LDL though has not been able to tolerate statin therapy.? Advised to talk to his bill peddler about Praulent injection. .. Obesity:? Continues to suffer from morbid obesity though has been working very hard on trying to lose weight . He reports since starting GLP 1 he has lost weight. [facility] Surgical History History of back surgery AICD (automatic cardioverter/defibrillator) present Family History Father COPD (chronic obstructive pulmonary disease) CAD (coronary artery disease) Mother No problems noted. Social History Housing: House Patient Tobacco Use Status: Never used Tobacco Tobacco use type: Cigarette e-Cigarette/Vaping Use: Never Used Second Hand Smoke Exposure: No service: No Current occupational status: retired Cognitive needs: No Hearing needs: No Vision needs: Yes (glasses) Questionnaire PHQ-9 Over the last 2 weeks, how often have you been bothered by any of the following problems? 1. Little interest or pleasure in doing things: several days 2. Feeling down, depressed, or hopeless: several days 3. Trouble falling or staying asleep, or sleeping too much: several days 4. Feeling tired or having little energy: nearly every day 5. Poor appetite or overeating: several days 6. Feeling bad about yourself - or that you are a failure or have let yourself or your family down: not at all 7. Trouble concentrating on things, such as reading the newspaper or watching television: not at all 8. Moving or speaking so slowly that other people could have noticed. Or the opposite - being so fidgety or restless that you have been moving around a lot more than usual: not at all 9. Thoughts that you would be better off or of hurting yourself in some way: not at all Total score: 7 Depression Screening Interpretation: Positive Depression Screening Done: Yes Source: Developed by Drs. Damian Justice, Thuy Mast, Jonathon Light and colleagues, with an educational emi from [employer]. Thrive Questionnaire Date Thrive assessed: 07/11/24 I am a: Patient What is your living situation today?: I have a steady place to live Within the past 12 months, did the food you bought not last and you didn't have the money to get more?: Never true Within the past 12 months, did you worry whether your food would run out before you got money to buy more?: Never true Do you have trouble paying for medicines?: Yes Do you have trouble getting transportation to medical appointments?: No Do you have trouble paying your heating and electricity bill?: No Do you have trouble taking care of your child, family member or friend?: No Do you have trouble with day-to-day activities such as bathing, preparing meals, shopping, managing finances, etc.?: No Are you currently unemployed and looking for a job?: No Are you interested in more education?: No Please select the resources that you would like help with: Paying for medicine Currently or been in a relationship where the following occur: No concerns reported THRIVE Score: 0 AUDIT C Alcohol Use Questionnaire (AUDIT-C) 1. How often do you have a drink containing alcohol?: Monthly or less 2. How many drinks containing alcohol do you have on a typical day when you are drinking?: 1 or 2 Total Score: 1 MASON-7 AMB Questionnaire MASON-7 Date MASON - 7 assessed: 08/29/24 Feeling nervous, anxious, or on edge: 0 = Not at all Not being able to stop or control worryin = Not at all Worrying too much about different things: 0 = Not at all Trouble relaxin = Not at all Being so restless that it is hard to sit still: 0 = Not at all Becoming easily annoyed or irritable: 0 = Not at all Feeling afraid as if something awful might happen: 0 = Not at all Total MASON-7 score (0-4 normal; 5-9 mild; 10-14 moderate; 15-21 severe): 0 Source: Developed by Drs. Damian Justice, Thuy Mast, Jonathon Light and colleagues, with an educational emi from [employer]. Review of Systems Const Denies body aches, Denies chills, Denies excessive sweating, Denies fatigue, Denies fever(s) and Denies headache(s) Eyes Denies blurry vision ENT Denies dysphagia, Denies vertigo, Denies dizziness, Denies headache(s), Denies hearing loss and Denies tinnitus Card Denies chest pain, Denies chest pain with activity, Denies syncope, Denies irregular heart rhythm and Denies dyspnea Resp Denies chest congestion, Denies cough, Denies hemoptysis, Denies dyspnea and Denies wheezing GI Denies abdominal pain, Denies melena, Denies hematochezia, Denies coffee ground emesis, Denies dysphagia, Denies diarrhea, Denies nausea and Denies vomiting Denies difficulty urinating, Denies dysuria, Denies urinary frequency, Denies urinary hesitancy and Denies urinary urgency Musc Denies arthralgias, Denies limited range of motion, Denies muscle cramps and Denies muscle weakness Skin/Breast Denies rash and Denies skin ulcer Neuro Denies Abnormal speech present, Denies confusion, Denies vertigo, Denies dizziness, Denies syncope, Denies headache(s), Denies memory loss and Denies seizure-like activity Psych Denies anxiety, Denies confusion, Denies depression, Denies memory loss, Denies panic attacks and Denies paranoia Endo Denies excessive sweating, Denies fatigue, Denies flushing, Denies polydipsia and Denies polyuria Aller/Immun Denies wheezing Physical exam (Primary Care) Vital Signs: Last Vital Signs Temp 96.9 F 08/29/24 09:03 Pulse 74 08/29/24 09:03 BP 142/64 H 08/29/24 09:03 Pulse Ox 96 08/29/24 09:03 Oxygen Delivery Method Room Air 08/29/24 09:03 BMI result Body Mass Index 44.7 Tobacco/Smoking Status: Tobacco use Status Tobacco use date assessed 08/29/24 08/29/24 09:12 Patient Tobacco Use Status Never used Tobacco 08/29/24 09:12 Tobacco use type Cigarette 08/29/24 09:12 e-Cigarette/Vaping Use Never Used 08/29/24 09:12 PHQ-9: PHQ-9 Score PHQ-9: Total score 7 08/29/24 09:12 Depression Screening Interpretation: Positive Thrive Assessment: Date of Thrive Assessment Date Thrive assessed 07/11/24 08/29/24 09:12 Currently or been in a relationship where the following occur: No concerns reported Const General: cooperative, comfortable, no acute distress, alert and awake; No confusion Orientation/consciousness: oriented to person, oriented to place, patient oriented x3 and No confusion HENMT Head: Yes normocephalic Ears: external ears normal and TM's normal bilaterally Face and sinus: No sinus tenderness Mouth: Normal oral and palatal mucosa present and tongue normal Teeth and gingiva: dentition normal and gingiva normal Throat: Yes posterior oropharynx normal, Yes tonsils normal and Yes uvula midline Eyes Conjunctivae: conjunctivae normal Sclerae: sclerae normal Pupils: Equal, round and reactive pupils present EOM: EOMs intact bilaterally Direct Ophthalmoscopy: No no photophobia Neck Neck: Yes no lymphadenopathy, No tender and Yes no JVD Thyroid: Thyroid normal Carotids: no bruits Chest Chest palpation & inspection: no tenderness Resp Effort & Inspection: normal respiratory effort, no audible wheezes, not labored and no stridor Auscultation: no crackles, no rales, no rhonchi and no wheezes Cardio Jugular venous distension: no JVD Rate: regular rate, not bradycardic and not tachycardic Rhythm: regular rhythm Bruits: no carotid bruits Peripheral pulses: Peripheral pulses 2+ throughout GI Inspection: Yes normal to inspection, No abdominal wall ecchymosis and No visible herniation Palpation (GI): Soft to palpation, nontender, no guarding, not rigid and No hepatosplenomegaly present Auscultation: normoactive bowel sounds General: Yes no CVA tenderness Back/Spine/Pelvis Back: no CVA tenderness and No back tenderness Cervical Spine: cervical ROM normal Thoracic/Lumbar Spine: thoracic and lumbar spine normal to inspection, straight leg raise negative bilaterally, No thoraco-lumbar ROM limited and No lumbar spinal tenderness Skin Lesions: no lesions Rashes: no rashes Wounds: no wounds Neuro General: oriented to person, oriented to place, patient oriented x3, CN's II-XI intact bilaterally and No confusion Cranial nerves: Yes Equal, round and reactive pupils present and Yes Normal accommodation reflex present Cognition (Neuro): normal cognition Speech: No Abnormal speech present Gait exam (Neuro): Normal gait present Motor exam (neuro): 5/5 motor strength present throughout Extrem Right upper extremity: full ROM; no cyanosis Left upper extremity: full ROM; no cyanosis Right lower extremity: no edema Left lower extremity: no edema Psych Appearance: grossly normal Mental Status: mental status grossly normal Affect: normal affect Attitude: cooperative Thought process: Normal thought process present Results AMB Hemoglobin A1c AMB Hemoglobin A1c 7.0 % Last Edit by SANJUANA Yusuf on 08/29/24 09:16 Results Reviewed Results Reviewed: Laboratory Last Values Hgb A1c (Clinic) 7.0 % (4.0-6.0) H 08/29/24 09:00 Coding Diagnoses Lumbar back pain M54.50 Type 2 diabetes mellitus with diabetic polyneuropathy, without long-term current use of insulin E11.42 Diabetes mellitus mcc insulin use: without mcc use Diabetes mellitus complication status: with neurologic complications Diabetes mellitus complication detail: with polyneuropathy AICD (automatic cardioverter/defibrillator) present Z95.810 Primary hypertension I10 Hypertension type: primary hypertension Mixed hyperlipidemia E78.2 Hyperlipidemia type: mixed hyperlipidemia BPH associated with nocturia N40.1; R35.1 Paroxysmal atrial fibrillation I48.0 Atrial fibrillation type: paroxysmal Assessment & Plan Assessment & Plan (1) Lumbar back pain: Code(s): M54.50 - Low back pain, unspecified Category: Medical (2) DMII (diabetes mellitus, type 2): Code(s): E11.9 - Type 2 diabetes mellitus without complications Category: Medical Qualifiers: Diabetes mellitus intermediate accountant insulin use: without intermediate accountant use Diabetes mellitus complication status: with neurologic complications Diabetes mellitus complication detail: with polyneuropathy Qualified Code(s): E11.42 - Type 2 diabetes mellitus with diabetic polyneuropathy (3) AICD (automatic cardioverter/defibrillator) present: Code(s): Z95.810 - Presence of automatic (implantable) cardiac defibrillator Category: Surgical (4) HTN (hypertension): Code(s): I10 - Essential (primary) hypertension Category: Social Hx Qualifiers: Hypertension type: primary hypertension Qualified Code(s): I10 - Essential (primary) hypertension (5) HLD (hyperlipidemia): Code(s): E78.5 - Hyperlipidemia, unspecified Category: Medical Qualifiers: Hyperlipidemia type: mixed hyperlipidemia Qualified Code(s): E78.2 - Mixed hyperlipidemia (6) BPH associated with nocturia: Code(s): N40.1 - Benign prostatic hyperplasia with lower urinary tract symptoms; R35.1 - Nocturia Category: Medical (7) Afib: Code(s): I48.91 - Unspecified atrial fibrillation Category: Medical Qualifiers: Atrial fibrillation type: paroxysmal Qualified Code(s): I48.0 - Paroxysmal atrial fibrillation Orders: Orders XR lumbar spine 2-3V Today M54.50 - Low back pain, unspecified Prostate Specific Antigen Scr Today N40.1 - Benign prostatic hyperplasia with lower urinary tract symptoms, R35.1 - Nocturia, Z12.5 - Encounter for screening for malignant neoplasm of prostate Complete Blood Count no Diff Today E11.42 - Type 2 diabetes mellitus with diabetic polyneuropathy Comprehensive [place]air. Panel Fast Today E11.42 - Type 2 diabetes mellitus with diabetic polyneuropathy AMB Hemoglobin A1c Today E11.42 - Type 2 diabetes mellitus with diabetic polyneuropathy Lipid Panel Today E11.42 - Type 2 diabetes mellitus with diabetic polyneuropathy Microalbumin, Random (w Creat) Today I10 - Essential (primary) hypertension Medications: New tamsulosin 0.4 mg PO DAILY 90 days 90 caps 1RF N40.1 - Benign prostatic hyperplasia with lower urinary tract symptoms, R35.1 - Nocturia
[2024-08-29 09:03] VITALS: BP 142/64; PULSE 74; TEMP 36.1; O2SAT 96; BMI 44.7
--- OUTSIDE RECORDS SUMMARY | 2024-08-29 09:21 | XMS_ITS | Continuity of Care Document ---
Author Organization [facility] Address [address] [place] 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 Labor Relations Name Role Phone Miguel Peng Primary Care Physician Encounter [facility] [place] Date(s): 07/08/24 - 08/07/24 [facility] [address] [place] [id number] Attending Physician: Lakisha Townsend Admitting Physician: Lakisha Townsend Referring Physician: Lakisha Townsend Encounter Type: Triage Allergies, Adverse Reactions, Alerts Substance Criticality Severity Reaction Reaction Severity Status Indocin Active Lipitor Active Contrast Dye Active Immunizations Given and Recorded Vaccine Date Status Refusal Reason SARS-CoV-2 (COVID-19) mRNA-1273 vaccine 09/26/20 G iven SARS-CoV-2 (COVID-19) mRNA-1273 vaccine 08/29/20 G iven Medications allopurinol 100 mg oral tablet 100 mg, 1, tablet, By Mouth, 2 times a day, Refills 0, Maintenance, 04/04/21 10:28:00 AM EDT, Partial fill upon patient request if the prescription is for a schedule II opioid drug. Start Date: 04/04/21 Status: Ordered Repeat number: 1 aspirin 81 mg oral tablet 1 tablet = 81 mg, By Mouth, Daily, # 30 tablet, 0 Refills, Maintenance, 09/02/12 1:46:03 PM EST, Tablet Start Date: 09/02/12 Status: Ordered Quantity: 30.0 Unit: tablet Repeat number: 1 Celexa 20 mg oral tablet 1 tablet = 20 mg, By Mouth, Daily, # 30 tablet, 0 Refills, Maintenance, 09/02/12 1:53:59 PM EST, Tablet Start Date: 09/02/12 Status: Ordered Quantity: 30.0 Unit: tablet Repeat number: 1 colchicine 0.6 mg oral tablet 0.6 mg, 1, tablet, TK 1 T PO BID Start Date: 04/14/19 Status: Ordered Repeat number: 1 GlipiZIDE By Mouth, Daily, 0 Refills, Maintenance, 04/04/21 10:27:00 AM EDT, Partial fill upon patient requestif the prescription is for a schedule II opioid drug. Start Date: 04/04/21 Status: Ordered Repeat number: 1 lisinopril 2.5 mg oral tablet 2.5 mg, 1, tablet, By Mouth, Daily, # 30 tablet, Refills 11, Tot. Refills 11, Maintenance, 01/12/17 4:31:08 PM EDT, Route to Pharmacy Electronically, [facility] [id number] Start Date: 01/12/17 Stop Date: 01/07/18 Status: Ordered Quantity: 30.0 Unit: tablet Repeat number: 12 Metformin = 500 mg, By Mouth, 2 times a day, 0 Refills, Maintenance, 01/28/17 12:03:49 PM EDT Start Date: 01/28/17 Status: Ordered Repeat number: 1 Toprol XL 25 mg oral tablet, extended release 1 tablet = 25 mg, By Mouth, Daily, # 30 tablet, 0 Refills, Maintenance, 09/02/12 1:45:53 PM EST, ER Tablet Start Date: 09/02/12 Status: Ordered Quantity: 30.0 Unit: tablet Repeat number: 1 Social History Social History Type Response Smoking Status Never smoker; Tobacc o user in household: No entered on: 03/17/14 Sex Sex Representation Male (finding) Cardiology * Event Display: Device Check Office Visit Authored Date: Patient Care team information Care Team Personnel Name: Betty Solomon RN Position: [facility] RN Member Role: Primary Care Nurse Name: Miguel Peng Position: Reference Physician Member Role: PCP Address: [address] [place] [address] [place], [place] [id number] Telecom: Name: Jennifer Aguirre RN Position: [facility] Nurse Member Role: Primary Care Nurse Care Team Related Persons Name: LAVERNE SHAHID Insurance Providers Guarantor name: TANI ZEHRA [employer] [facility] Information #: 1 Payer: [employer]IDAN CORTES Member Number: NA Policy Number: NA Group Number: NA [facility] Information #: 2 Payer: [facility] Member Number: NA Policy Number: NA Group Number: NA
== END 2024-08-29 09:58 | disposition home or self-care (01) ==
PROVIDERS: PCP Physician Assistant; Visit Provider Physician Assistant
DX: E11.42 Type 2 diabetes mellitus with diabetic polyneuropathy (principal)

== ENCOUNTER → 2024-08-29 08:51 | Outpatient (BNVA) | payer MEDICARE, SELFPAY | PROVIDERS: PCP Physician Assistant; Visit Provider Physician Assistant | DX: E11.42 Type 2 diabetes mellitus with diabetic polyneuropathy (principal); M54.50 Low back pain, unspecified; I10 Essential (primary) hypertension; E78.2 Mixed hyperlipidemia; I48.0 Paroxysmal atrial fibrillation; E66.813 Obesity, class 3; I42.0 Dilated cardiomyopathy; Z95.810 Presence of automatic (implantable) cardiac defibrillator | CPT/HCPCS: 83036; 96127; 99212 ==

== ENCOUNTER 2025-01-10 12:53 | Outpatient (AMB) | payer MEDICARE, SELFPAY ==
--- NOTE | 2025-01-10 13:04 | MHC.PC.OV ---
Vital Signs 01/10/25 13:06 Height 6 ft 3 in Weight 353 lb 2 oz BMI 44.1 BP 144/78 H Blood Pressure Location Lt brachial Pulse 92 Pulse Source Pulse Oximeter Pulse Oximetry (%) 98 Oxygen Delivery Method Room Air Intake Visit Reasons: Blurred vision and other concerns Wood Fence Erector Required: No Accompanied by: Self / Same As Patient Allergies atorvastatin (From LIPITOR) Allergy (Unknown, Verified 01/10/25 13:15) TONGUE SWELLING indomethacin (From INDOCIN) Allergy (Unknown, Verified 01/10/25 13:15) ANAPHYLAXIS Iodinated Contrast Media (IV CONTRAST) Allergy (Unknown, Verified 01/10/25 13:15) VOMITTING metformin Adverse Reaction (Intermediate, Uncoded 01/10/25 13:15) GI upset Medication List - Last Reconciled 01/10/25 by Miguel Willoughby PA-C acetaminophen ER (Tylenol Arthritis Pain) 1,300 mg (2 x 650 mg) PO Q8H PRN allopurinol 300 mg PO DAILY 90 days blood-glucose sensor (NetMinderStyle Michelle 3 Sensor device) As directed CPAP (CPAP Machine/Device) As directed dulaglutide (Trulicity) 3 mg (0.5 mL) subcut QWEEK 4 weeks flash glucose scanning reader (FreeStyle Michelle 2 Corry) As directed flash glucose sensor (FreeStyle Michelle 2 Sensor kit) As directed gabapentin 300 mg PO BID 30 days gemfibrozil 600 mg PO BID 30 days ibuprofen 800 mg PO Q8H PRN 15 days insulin glargine (Lantus Solostar U-100 Insulin) 15 units (0.15 mL) subcut QPM 30 days lisinopril 20 mg PO DAILY 90 days metoprolol succinate ER 25 mg PO DAILY 90 days miscellaneous medical supply 1 ea miscellaneous DAILY 99 days pen needle, diabetic (BD Ultra-Fine Maddie Pen Needle) As directed sildenafil 100 mg PO DAILY PRN 5 days tamsulosin 0.4 mg PO DAILY 90 days testosterone 2 pumps topical DAILY 30 days Tobacco use date assessed: 01/10/25 Dental Screening Dental Screen Date: 01/10/25 HPI Blurred vision and other concerns HPI Details Patient is a 69-year-old male here today a follow up visit..? Patient has a past medical history significant for cardiac arrhythmia and has an AICD placed, type 2 diabetes, gout,? TERRENCE, hypertension, hypogonadism. --> Clayton has been experiencing more stress and anxiety as of late due to personal issues going on at home. Has a daughter with osteogenic imperfecta and is currently on hospice. Bilateral lower extremity neuropathy: The patient reports experiencing significant peripheral neuropathy, characterized by numbness and lack of sensation in the feet, predominantly on the left side. He describes episodes where he feels like he might fall and has to bend over to regain sensation in his legs. The neuropathy is severe enough to impact his daily activities, including walking and standing for prolonged periods. Type 2 diabetes:? Most recent A1c is 7.0 . He continues on Trulicity 3 mg and insulin therapy (20 units of Lantus). Recent A1c slightly above 7.0 and he does report some dietary indiscretion over the last couple of months. Reports his sugars have been bit better. He denies any hypoglycemic events. Also does have neuropathy in his lower extremities that he has been taking gabapentin for. He does report feeling somewhat fatigued during the day which we attribute to his dose of gabapentin. .. Hypogonadism: Most recent testosterone within normal range.. Has establish care with urologist unfortunately has no follow-ups, does need refill on his topical testosterone therapy. .. Dilated cardiomyopathy: Nonischemic dilated cardiomyopathy with left ventricular ejection fraction approximately 35-50% on serial echocardiograms, he is status post biventricular ICD placement with an arterial lead revision done in 2017. He also has had a cardiac catheterization showing no significant atherosclerosis of the coronary arteries. ?Patient followed by Cardiology.? He reports recently having a few episodes of profuse sweating on minimal exertion..? Has called his bonding equipment operator and has an appointment coming this coming month. Of note does very elevated total cholesterol and LDL though has not been able to tolerate statin therapy.? Advised to talk to his bonding equipment operator about Praulent injection. .. Obesity: Lost a bit of weight since last office visit. Today's BMI at 44.1.? Continues to suffer from morbid obesity though has been working very hard on trying to lose weight . He reports since starting GLP 1 he has lost weight. [facility] Surgical History History of back surgery AICD (automatic cardioverter/defibrillator) present Family History Father COPD (chronic obstructive pulmonary disease) CAD (coronary artery disease) Mother No problems noted. Social History Housing: House Patient Tobacco Use Status: Never used Tobacco Tobacco use type: Cigarette e-Cigarette/Vaping Use: Never Used Second Hand Smoke Exposure: No service: No Current occupational status: retired Cognitive needs: No Hearing needs: No Vision needs: Yes (glasses) Questionnaire Thrive Questionnaire Date Thrive assessed: 07/11/24 I am a: Patient What is your living situation today?: I have a steady place to live Within the past 12 months, did the food you bought not last and you didn't have the money to get more?: Never true Within the past 12 months, did you worry whether your food would run out before you got money to buy more?: Never true Do you have trouble paying for medicines?: Yes Do you have trouble getting transportation to medical appointments?: No Do you have trouble paying your heating and electricity bill?: No Do you have trouble taking care of your child, family member or friend?: No Do you have trouble with day-to-day activities such as bathing, preparing meals, shopping, managing finances, etc.?: No Are you currently unemployed and looking for a job?: No Are you interested in more education?: No Please select the resources that you would like help with: Paying for medicine Currently or been in a relationship where the following occur: No concerns reported THRIVE Score: 0 MASON-7 AMB Questionnaire MASON-7 Date MASON - 7 assessed: 08/29/24 Source: Developed by Drs. Damian Justice, Thuy Mast, Jonathon Light and colleagues, with an educational emi from [employer]. Review of Systems Const Denies headache(s) Eyes Denies loss of vision ENT Denies vertigo, Denies dizziness, Denies headache(s) and Denies sore throat Card Denies chest pain, Denies leg edema and Denies lightheadedness Resp Denies cough, Denies hemoptysis and Denies wheezing GI Denies abdominal pain, Denies melena, Denies constipation, Denies diarrhea and Denies vomiting Denies dysuria, Denies urinary frequency and Denies urinary urgency Musc Denies arthralgias, Denies joint swelling, Denies numbness and Denies tingling Neuro Denies Abnormal speech present, Denies behavioral changes, Denies vertigo, Denies dizziness, Denies headache(s), Denies loss of vision, Denies memory loss, Denies numbness and Denies tingling Psych Denies anxiety, Denies behavioral changes, Denies depression, Denies memory loss and Denies panic attacks Hector/Lymph Denies easy bleeding and Denies easy bruising Aller/Immun Denies wheezing Physical exam (Primary Care) Vital Signs: Last Vital Signs Pulse 92 01/10/25 13:06 BP 144/78 H 01/10/25 13:06 Pulse Ox 98 01/10/25 13:06 Oxygen Delivery Method Room Air 01/10/25 13:06 BMI result Body Mass Index 44.1 Tobacco/Smoking Status: Tobacco use Status Tobacco use date assessed 01/10/25 01/10/25 13:11 Patient Tobacco Use Status Never used Tobacco 01/10/25 13:04 Tobacco use type Cigarette 01/10/25 13:04 e-Cigarette/Vaping Use Never Used 01/10/25 13:04 Thrive Assessment: Date of Thrive Assessment Date Thrive assessed 07/11/24 01/10/25 13:04 Currently or been in a relationship where the following occur: No concerns reported Const General: healthy appearing, no acute distress, alert and awake Nutritional Appearance: well nourished Orientation/consciousness: oriented to person, oriented to place and oriented to time HENMT Ears: TM's normal bilaterally General nose exam: Normal nasal mucous membranes and turbinates present Eyes Conjunctivae: conjunctivae normal Sclerae: sclerae normal Pupils: Equal, round and reactive pupils present Neck Neck: Yes no lymphadenopathy and Yes no JVD Thyroid: Thyroid normal Carotids: no bruits Resp Effort & Inspection: normal respiratory effort and not tachypneic Auscultation: no crackles, no rales, no rhonchi and no wheezes Cardio Rate: regular rate Rhythm: regular rhythm Heart sounds: no murmurs and normal S1 and S2 GI Palpation (GI): Soft to palpation, nontender, no hepatomegaly and no splenomegaly Auscultation: normal bowel sounds Skin General skin exam: no rashes or lesions noted and dry skin Neuro General: oriented to person, oriented to place and oriented to time Cranial nerves: Yes Equal, round and reactive pupils present Speech: No Abnormal speech present Gait exam (Neuro): Normal gait present Motor exam (neuro): no tremor noted Extrem Right upper extremity: full ROM Left upper extremity: full ROM Right lower extremity: full ROM; no edema Left lower extremity: full ROM; no edema Psych Mental Status: mental status grossly normal Speech and movement: Normal speech and movement present Affect: normal affect Attitude: cooperative Thought process: Normal thought process present Coding Level of Care Code Est Pt Level 4 (42419) Diagnoses Neuropathy involving both lower extremities G57.93 Lumbar radiculopathy, chronic M54.16 Type 2 diabetes mellitus with diabetic polyneuropathy, without long-term current use of insulin E11.42 Diabetes mellitus terminal superintendent insulin use: without snf use Diabetes mellitus complication status: with neurologic complications Diabetes mellitus complication detail: with polyneuropathy Primary hypertension I10 Hypertension type: primary hypertension Assessment & Plan Assessment & Plan (1) Neuropathy involving both lower extremities: Code(s): G57.93 - Unspecified mononeuropathy of bilateral lower limbs Category: Medical Plan: The patient experiences significant peripheral neuropathy, impacting daily activities such as walking and standing. An EMG of the lower extremities is recommended to assess the extent of nerve involvement. (2) Lumbar radiculopathy, chronic: Code(s): M54.16 - Radiculopathy, lumbar region Category: Medical Plan: Will try for CT lumbar spine evaluate for lumbar disc or evidence of stenosis due to his persistent lower extremity numbness. (3) DMII (diabetes mellitus, type 2): Code(s): E11.9 - Type 2 diabetes mellitus without complications Category: Medical Qualifiers: Diabetes mellitus terminal superintendent insulin use: without snf use Diabetes mellitus complication status: with neurologic complications Diabetes mellitus complication detail: with polyneuropathy Qualified Code(s): E11.42 - Type 2 diabetes mellitus with diabetic polyneuropathy Plan: Patient's type 2 diabetes controlled with A1c is 7.0. He continues on Trulicity and insulin therapy. Goal A1c is to remain below 7.0. (4) HTN (hypertension): Code(s): I10 - Essential (primary) hypertension Category: Social Hx Qualifiers: Hypertension type: primary hypertension Qualified Code(s): I10 - Essential (primary) hypertension Plan: Patient's blood pressure slightly elevated today in office. Continues on lisinopril and metoprolol. Will consider increasing lisinopril dose to 30 mg if blood pressure remains above 140/90 consistently. Goal blood pressures to be below 140/90 Orders: Orders Hemoglobin A1c Today E11.42 - Type 2 diabetes mellitus with diabetic polyneuropathy Complete Blood Count no Diff Today E11.42 - Type 2 diabetes mellitus with diabetic polyneuropathy Comprehensive [place]. Panel Fast Today E11.42 - Type 2 diabetes mellitus with diabetic polyneuropathy NE electromyogram (EMG) Today G57.93 - Unspecified mononeuropathy of bilateral lower limbs CT lumbar spine wo IV con Today M54.16 - Radiculopathy, lumbar region Lipid Panel Today E78.2 - Mixed hyperlipidemia Referrals Pain Management Referral G57.93 - Unspecified mononeuropathy of bilateral lower limbs Medications: New pyridoxine (vitamin B6) 100 mg PO DAILY 90 tabs 1RF 90 days G57.93 - Unspecified mononeuropathy of bilateral lower limbs Changed From insulin glargine (Lantus Solostar U-100 Insulin) 15 units (0.15 mL) subcut QPM 30 days 15 mL 1RF E11.42 - Type 2 diabetes mellitus with diabetic polyneuropathy To insulin glargine (Lantus Solostar U-100 Insulin) 20 units (0.2 mL) subcut QPM 6 mL 1RF 30 days E11.42 - Type 2 diabetes mellitus with diabetic polyneuropathy Refilled tamsulosin 0.4 mg PO DAILY 90 caps 1RF 90 days N40.1 - Benign prostatic hyperplasia with lower urinary tract symptoms, R35.1 - Nocturia
[2025-01-10 13:06] VITALS: BP 144/78; PULSE 92; O2SAT 98; BMI 44.1
== END 2025-01-10 13:41 | disposition home or self-care (01) ==
LOC: HO.HMCH 13:00
PROVIDERS: PCP Physician Assistant; Visit Provider Physician Assistant
DX: G57.93 Unspecified mononeuropathy of bilateral lower limbs (principal); M54.16 Radiculopathy, lumbar region; E11.42 Type 2 diabetes mellitus with diabetic polyneuropathy; I10 Essential (primary) hypertension

== ENCOUNTER → 2025-01-10 12:53 | Outpatient (BNVA) | payer MEDICARE, SELFPAY | PROVIDERS: PCP Physician Assistant; Visit Provider Physician Assistant | DX: G57.93 Unspecified mononeuropathy of bilateral lower limbs (principal); E11.42 Type 2 diabetes mellitus with diabetic polyneuropathy; I10 Essential (primary) hypertension | CPT/HCPCS: 99212 ==

== ENCOUNTER 2025-01-27 13:22 | Outpatient (AMB) | payer MEDICARE, SELFPAY ==
[2025-01-27 13:27] VITALS: BP 167/79; PULSE 50; RESP 16; O2SAT 94; BMI 44.5
--- NOTE | 2025-01-27 13:27 | A.OFFVIS_ITS ---
Vital Signs 01/27/25 13:27 Height 6 ft 3 in Weight 356 lb BMI 44.5 BP 167/79 H Blood Pressure Location Rt brachial Position Sitting Respiration 16 Pulse 50 Pulse Source Pulse Oximeter Pulse Oximetry (%) 94 Oxygen Delivery Method Room Air Intake Visit Reasons: Unspecified mononeuropathy of bilateral lower limb Mat Machine Tender Required: No Accompanied by: Daughter Allergies atorvastatin (From LIPITOR) Allergy (Unknown, Verified 01/27/25 13:31) TONGUE SWELLING indomethacin (From INDOCIN) Allergy (Unknown, Verified 01/27/25 13:31) ANAPHYLAXIS Iodinated Contrast Media (IV CONTRAST) Allergy (Unknown, Verified 01/27/25 13:31) VOMITTING metformin Adverse Reaction (Intermediate, Uncoded 01/10/25 13:15) GI upset HPI Comments Details: Curtis is a very pleasant 69-year-old male who presents to the office today for evaluation and management of his painful bilateral peripheral neuropathy. He has been suffering with this pain for many years, the pain is in both feet. He endorses burning, tingling pain to both feet that is worse in the evening and is preventing him from being able to sleep. He is currently taking gabapentin, he states that this helps some but pain persists. The patient is known diabetic, most recent A1c is 7.0 on 08/29/24. He has continuous glucose monitor that he uses to check his blood sugars throughout the day, he is compliant with his medications including his long-acting and short- acting insulins. Patient also complains of pain over bilateral PSIS, worse with standing, walking and stairs. Unable to lie on his sides due to the pain. Left worse than right. Patient has CAT scan of his lower back coming up, unable to tolerate MRI secondary to AICD. He has not completed physical therapy. Patient has been taking gabapentin 300 mg at bedtime and ibuprofen as needed without improvement of his symptoms. Pain is worse at night impacting his sleep. Patient does golf often, he has also primary care support representative of his adult child who suffers from osteogenesis imperfecta and is currently on hospice. In terms of muscle damage condition is described as shooting, dull, stabbing, sharp, tingling, pins and needles. Pain is negatively impacting patient's sleep, recreational activities, enjoyment of life. [facility] Surgical History History of back surgery AICD (automatic cardioverter/defibrillator) present Family History Father COPD (chronic obstructive pulmonary disease) CAD (coronary artery disease) Mother No problems noted. Social History Housing: House Patient Tobacco Use Status: Never used Tobacco Tobacco use type: Cigarette e-Cigarette/Vaping Use: Never Used Second Hand Smoke Exposure: No service: No Current occupational status: retired Cognitive needs: No Hearing needs: No Vision needs: Yes (glasses) Review of Systems Const All systems reviewed & are unremarkable except as noted in HPI and below Physical Exam Exam Exam: General: awake, alert, oriented. Answers questions appropriately. Fully engaged in examination. Skin: warm, dry, intact HEENT: Normocephalic. Hearing intact. Cardiac: External chest normal in appearance. Respiratory: No cough, audible wheezing or stridor. Abdomen: without gross distension. MS: No obvious swelling or deformities. Able to transition from sit to stand unassisted. Ambulates with bilaterally normal heel strike and toe off Tenderness over bilateral PSIS, [place] positive bilaterally, thigh thrust positive bilaterally, SI compression positive bilaterally Right foot: skin intact. decreased light/sharp sensation Left foot: skin intact. decreased light/sharp sensation Neurological: Oriented to person, place, time and situation. Thought process intact. No gait abnormalities appreciated. Psychiatric: Appropriate mood and affect. Good judgment and insight. Vital Signs: Last Vital Signs Pulse 50 01/27/25 13:27 Resp 16 01/27/25 13:27 BP 167/79 H 01/27/25 13:27 Pulse Ox 94 01/27/25 13:27 Oxygen Delivery Method Room Air 01/27/25 13:27 BMI result Body Mass Index 44.5 Assessment & Plan Assessment & Plan (1) DMII (diabetes mellitus, type 2): Code(s): E11.9 - Type 2 diabetes mellitus without complications Category: Medical Qualifiers: Diabetes mellitus retirement insulin use: without longitudinal float operator use Diabetes mellitus complication status: with neurologic complications Diabetes mellitus complication detail: with polyneuropathy Qualified Code(s): E11.42 - Type 2 diabetes mellitus with diabetic polyneuropathy (2) Neuropathy involving both lower extremities: Code(s): G57.93 - Unspecified mononeuropathy of bilateral lower limbs Category: Medical (3) Diabetic neuropathy: Code(s): E11.40 - Type 2 diabetes mellitus with diabetic neuropathy, unspecified Category: Medical (4) Lumbar spondylosis: Code(s): M47.816 - Spondylosis without myelopathy or radiculopathy, lumbar region Category: Medical (5) Sacroiliac joint dysfunction of both sides: Code(s): M53.3 - Sacrococcygeal disorders, not elsewhere classified Category: Medical Plan Curtis is a very pleasant 69-year-old male presented to the office today for evaluation and management of his painful bilateral diabetic neuropathy and bilateral sacroiliac joint dysfunction. X-rays ordered for evaluation of his axial back pain and sacroiliac joint dysfunction Order placed for PT eval and treat for bilateral sacroiliac joints infection Discussed options for treatment including in office topical capsaicin application and more permanent neuromodulation with spinal cord stimulation. Pamphlet for Qutenza given to patient for review at home. Will submit PA for Qutenza topical application. Patient advised on procedure including preparation and EMLA application prior to appointment. He is aware treatment is done in office and he will be here for at least 30minutes during each visit. All questions and concerns have been answered and patient agrees with the plan. Patient aware he will be called to schedule appointment for Qutenza pending insurance approval. Orders: Orders XR lumbar spine 4V min Today M47.816 - Spondylosis without myelopathy or radiculopathy, lumbar region XR sacroiliac joint min 3V Today M53.3 - Sacrococcygeal disorders, not elsewhere classified PT Evaluation and Treatment Today M53.3 - Sacrococcygeal disorders, not elsewhere classified Coding Level of Care Code New Pt Level 4 (71967) Complex EM visit Add On G2211 Diagnoses Type 2 diabetes mellitus with diabetic polyneuropathy, without long-term current use of insulin E11.42 Diabetes mellitus longitudinal float operator insulin use: without retirement use Diabetes mellitus complication status: with neurologic complications Diabetes mellitus complication detail: with polyneuropathy Neuropathy involving both lower extremities G57.93 Diabetic neuropathy E11.40 Lumbar spondylosis M47.816 Sacroiliac joint dysfunction of both sides M53.3
== END 2025-01-27 14:09 | disposition home or self-care (01) ==
LOC: HO.PMC 13:23
PROVIDERS: PCP Physician Assistant; Referring Provider Physician Assistant; Visit Provider Registered Nurse Emergency
DX: E11.42 Type 2 diabetes mellitus with diabetic polyneuropathy (principal); G57.93 Unspecified mononeuropathy of bilateral lower limbs; E11.40 Type 2 diabetes mellitus with diabetic neuropathy, unspecified; M47.816 Spondylosis without myelopathy or radiculopathy, lumbar region; M53.3 Sacrococcygeal disorders, not elsewhere classified
CPT/HCPCS: 99204; G2211

== ENCOUNTER → 2025-01-27 13:22 | Outpatient (BNVA) | payer MEDICARE, SELFPAY | PROVIDERS: PCP Physician Assistant; Referring Provider Physician Assistant; Visit Provider Registered Nurse Emergency | DX: E11.42 Type 2 diabetes mellitus with diabetic polyneuropathy (principal); M47.816 Spondylosis without myelopathy or radiculopathy, lumbar region; M53.3 Sacrococcygeal disorders, not elsewhere classified | CPT/HCPCS: 99202 ==

== ENCOUNTER 2025-02-14 08:13 | Outpatient (REF) | payer MEDICARE, SELFPAY ==
--- NOTE | 2025-02-14 08:22 | EMG_ITS ---
Bilateral tibial and peroneal motor studies were performed bilateral superficial peroneal and sural sensory studies were performed tibial H reflexes were obtained and EMG needle examination was performed. Impression: 1. Chronic bilateral lower lumbar radiculopathy 2. Moderately severe sensory motor somewhat patchy peripheral neuropathy with axonal loss MTDD
== END 2025-02-14 08:14 | disposition home or self-care (01) ==
LOC: HO.NEURO 08:13
PROVIDERS: PCP Physician Assistant; Visit Provider Physician Assistant
DX: G57.93 Unspecified mononeuropathy of bilateral lower limbs (principal)
CPT/HCPCS: 95886; 95911

== ENCOUNTER → 2025-02-14 08:22 | Outpatient (BNV) | payer MEDICARE, SELFPAY | PROVIDERS: PCP Physician Assistant; Visit Provider Psychiatry & Neurology Neurology | DX: M54.16 Radiculopathy, lumbar region (principal) | CPT/HCPCS: 95886; 95911 ==

== ENCOUNTER 2025-02-22 12:49 | Outpatient (REF) | payer MEDICARE, SELFPAY ==
--- NOTE | ~2025-02-22 | XR_ITS ---
EXAMINATION: XR LUMBOSACRAL SPINE WITH OBLIQUES CLINICAL INFORMATION: M47.816 - Spondylosis without myelopathy or radiculopathy, lumbar region COMPARISON: None available. TECHNIQUE: AP oblique and lateral views. FINDINGS: Multilevel marginal osteophyte formation and endplate sclerosis. Decreased intervertebral disc height at L4-5 and L5-S1. Bilateral facet joint hypertrophy at L4-5 and L5-S1. Prominent left transverse process of L5 articulating with the sacrum and demonstrated subchondral cyst formation and vacuum phenomenon. No gross malalignment. No lytic or blastic lesions. Vascular calcifications, aorta.. XR/XR lumbar spine 4V min IMPRESSION: Multilevel thoracolumbar spondylosis pronounced at L4-5 and L5-S1. 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 Electronically signed by: Samuel Nj MD 02/22/2025 01:42 PM EDT
--- NOTE | ~2025-02-22 | XR_ITS ---
EXAMINATION: XR SACROILIAC JOINTS CLINICAL INFORMATION: M53.3 - Sacrococcygeal disorders, not elsewhere classified COMPARISON: None available. TECHNIQUE: AP and oblique views of the sacroiliac joints FINDINGS: Mild sclerosis and vacuum phenomenon pronounced on the right sacroiliac joint. No acute cortical disruption. No gross lytic or blastic lesion. Prominent left transverse processes of L5 articulating with the sacrum demonstrating sclerosis along the articular surface and vacuum phenomenon. Multilevel lumbar spondylosis. XR/XR sacroiliac joint min 3V IMPRESSION: Mild sacroiliitis, bilaterally. 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 Multilevel spondylosis. Electronically signed by: Samuel Nj MD 02/22/2025 01:40 PM EDT
--- NOTE | ~2025-02-22 | CT_ITS ---
EXAMINATION: CT LUMBAR SPINE WITHOUT CONTRAST CLINICAL INFORMATION: M54.16 - Radiculopathy, lumbar region COMPARISON: None available. TECHNIQUE: Axial imaging was performed from mid T11 through the lower sacrum coccygeal region without IV contrast. Coronal and sagittal reformatted images were generated from the original axial data set. ALARA: The examination used one or more of the following radiation dose reduction techniques: Automated exposure control, iterative reconstruction, and/or adjustment of mA and/or kV. DLP: 2034 mGY*cm FINDINGS: There are 6 nonrib-bearing lumbar segments with a transitional L6 vertebral body that see liver reticulates the upper sacrum on the left. Visualized solid and hollow viscus organs are grossly unremarkable. There is mild atherosclerotic calcifications in the abdominal aorta and iliac arteries. There is vacuum phenomena and marginal osteophytes involving both SI joints. T12-L1: There is moderate disc space narrowing without spinal stenosis or foraminal narrowing. L1-L2: There is jlth-tm-[id number] disc space narrowing without spinal stenosis or foraminal narrowing. L2-L3: There is mild disc space narrowing and posterior osteophyte formation. There is vacuum phenomena. There is subtle retrolisthesis. There is moderate facet osteophyte formation. There is mild to moderate spinal stenosis and mild bilateral foraminal narrowing. L3-L4: There is mild disc space narrowing. There is calcium pyrophosphate in the disc. There is broad-based disc bulge and mild to moderate spinal stenosis. There is moderate facet arthropathy. There is mild foraminal narrowing, greater than left. L4-L5: There is mild disc space narrowing and broad-based disc bulge with endplate osteophytes. There is calcification and ligamentum flavum. There is moderate to severe spinal stenosis. There is moderate bilateral foraminal narrowing. There is severe facet arthropathy. L5-L6: There is severe disc space narrowing with vacuum phenomenon and endplate osteophytes. There is endplate sclerosis and degenerative cystic changes. There is severe facet arthropathy. There is broad posterior disc osteophyte complex and probable disc extrusion centrally with severe spinal stenosis. There is severe foraminal narrowing, greater on the left. L6-S1: There is mild disc space narrowing. Facet osteophytes result in mild to moderate right foraminal narrowing without left-sided narrowing. There is a broad articulation of the left L6 transverse process and superior sacrum with degenerative irregularity and vacuum phenomena. CT/CT lumbar spine wo IV con IMPRESSION: There is 6 nonrib-bearing lumbar segments with a transitional sixth vertebral body. It articulates with the sacrum on the left. The pseudoarticulation demonstrates moderate severe mechanical degenerative changes. Multilevel degenerative disc disease and facet arthropathy. Evaluation is limited on CT compared to MRI. L2-L3: There is mild to moderate spinal stenosis. L3-L4: There is mild to moderate spinal stenosis. L4-L5: There is moderate to severe spinal stenosis and moderate bilateral foraminal narrowing. L5-L6: There is severe spinal stenosis and severe foraminal narrowing, greater on the left. Electronically signed by: Frank Ruth MD 02/22/2025 01:58 PM EDT
[2025-02-22 14:28] LABS: Hematocrit 43.0 % (42.0-52.0); Hemoglobin 14.2 g/dl (14.0-18.0); Mean Corpuscular HGB Conc 33.0 g/dl (31.0-36.0); Mean Corpuscular Hemoglobin 30.0 pg (27.0-33.0); Mean Corpuscular Volume 90.9 fL (80.0-98.0); NRBC Abs Auto 0.000 X10*3/uL (0.0-0.012); NRBC Pct Auto 0.0 /100WBC (0.0-0.2); Platelet Count 160 X10*3/uL (160-400); Red Blood Count 4.73 X10*6/uL (4.60-5.80); White Blood Count 9.0 X10*3/uL (4.8-10.8)
[2025-02-22 14:37] LABS: Hemoglobin A1C 209.0352 umol/L; Total Hemoglobin (HGBA1C) 3845.1648 umol/L
[2025-02-22 15:22] LABS: Alanine Aminotransferase 36 U/L (0-40); Albumin Level 4.0 g/dL (3.5-5.0); Alkaline Phosphatase 52 U/L (39-117); Anion Gap 13 (12-20); Aspartate Amino Transferase 30 U/L (5-37); Blood Urea Nitrogen 16 mg/dL (9-16); Calcium 8.9 mg/dL (8.4-10.2); Carbon Dioxide 27 mmol/L (22-29); Chloride 107 mmol/L (96-108); Cholesterol 222 mg/dL (<200); Estimated Glomerular Filt Rate > 60; HDL Cholesterol 38 mg/dL (>40); Potassium 4.3 mmol/L (3.3-5.1); Sodium 143 mmol/L (135-145); Total Protein 7.1 g/dL (6.5-8.0); Triglycerides 208 mg/dL (<150)
== END 2025-02-22 12:50 | disposition home or self-care (01) ==
LOC: HO.CT 12:49
PROVIDERS: PCP Physician Assistant; Visit Provider Physician Assistant
DX: M54.16 Radiculopathy, lumbar region (principal); M47.816 Spondylosis without myelopathy or radiculopathy, lumbar region; M53.3 Sacrococcygeal disorders, not elsewhere classified; I10 Essential (primary) hypertension; R35.1 Nocturia; N40.1 Benign prostatic hyperplasia with lower urinary tract symptoms; E11.42 Type 2 diabetes mellitus with diabetic polyneuropathy; Z12.5 Encounter for screening for malignant neoplasm of prostate
CPT/HCPCS: 36415; 72110; 72131; 72202; 80053; 80061; 82043; 82570; 83036; 84153; 85027

== ENCOUNTER → 2025-02-22 12:52 | Outpatient (BNV) | payer MEDICARE, SELFPAY | PROVIDERS: PCP Physician Assistant; Visit Provider Radiology Diagnostic Radiology | DX: M48.07 Spinal stenosis, lumbosacral region (principal); M47.816 Spondylosis without myelopathy or radiculopathy, lumbar region; M46.1 Sacroiliitis, not elsewhere classified | CPT/HCPCS: 72110; 72202 ==

== ENCOUNTER 2025-03-23 14:09 | Outpatient (AMB) | payer MEDICARE, SELFPAY ==
--- NOTE | 2025-03-23 14:15 | MHC.PC.OV ---
Vital Signs 03/23/25 14:16 Height 6 ft 3 in Weight 354 lb 8 oz BMI 44.3 BP 130/60 Blood Pressure Location Rt brachial Position Sitting Pulse 70 Pulse Source Pulse Oximeter Temp 97.1 F Temp Source Temporal Artery Scan Pulse Oximetry (%) 93 Oxygen Delivery Method Room Air Intake Visit Reasons: follow up diabetic Intake Note: Patient is here to follow up on DM. Transformation Specialist Required: No Extract Operator: Not Required per policy Accompanied by: Self / Same As Patient Allergies atorvastatin (From LIPITOR) Allergy (Unknown, Verified 03/23/25 14:30) TONGUE SWELLING indomethacin (From INDOCIN) Allergy (Unknown, Verified 03/23/25 14:30) ANAPHYLAXIS Iodinated Contrast Media (IV CONTRAST) Allergy (Unknown, Verified 03/23/25 14:30) VOMITTING metformin Adverse Reaction (Intermediate, Uncoded 03/23/25 14:30) GI upset Medication List - Last Reconciled 03/23/25 by Miguel Willoughby PA-C acetaminophen ER (Tylenol Arthritis Pain) 1,300 mg (2 x 650 mg) PO Q8H PRN allopurinol 300 mg PO DAILY 90 days blood-glucose sensor (FreeStyle Michelle 3 Sensor device) As directed CPAP (CPAP Machine/Device) As directed dulaglutide (Trulicity) 3 mg (0.5 mL) subcut QWEEK 4 weeks flash glucose scanning reader (FreeStyle Michelle 2 [place]) As directed flash glucose sensor (FreeStyle Michelle 2 Sensor kit) As directed gabapentin 600 mg PO BID 30 days ibuprofen 800 mg PO Q8H PRN 15 days insulin glargine (Lantus Solostar U-100 Insulin) 20 units (0.2 mL) subcut QPM 30 days lisinopril 20 mg PO DAILY 90 days metoprolol succinate ER 25 mg PO DAILY 90 days miscellaneous medical supply 1 ea miscellaneous DAILY 99 days pen needle, diabetic As directed pyridoxine (vitamin B6) 100 mg PO DAILY 90 days sildenafil 100 mg PO DAILY PRN 5 days tamsulosin 0.4 mg PO DAILY 90 days Tobacco use date assessed: 03/23/25 Fall risk assessment: No Falls in past year Last assessed Fall Risk: 03/23/25 Dental Screening Dental Screen Date: 01/10/25 HPI follow up diabetic HPI Details Patient is a 70-year-old male here today a follow up visit..? Patient has a past medical history significant for cardiac arrhythmia and has an AICD placed, type 2 diabetes, gout,? TERRENCE, hypertension, hypogonadism. --> Clayton has been experiencing more stress and anxiety as of late due to personal issues going on at home. He reports his daughter whom at a rare bone disease recently and he has been a bit more saddened and going through grief at this time. Bilateral lower extremity neuropathy: The patient reports experiencing significant peripheral neuropathy, he reports his neuropathy has been been a bit better since increase in his dose of gabapentin.. characterized by numbness and lack of sensation in the feet, predominantly on the left side. He describes episodes where he feels like he might fall and has to bend over to regain sensation in his legs. The neuropathy is severe enough to impact his daily activities, including walking and standing for prolonged periods. .. Lumbar radiculopathy: The neuropathy and sciatica have become excruciating, with the patient noting that gabapentin at a dose of 600 mg has helped alleviate some of the pain, although he only takes it once a day if needed. The pain radiates down the left leg, starting from the lumbar region, and has significantly impacted his ability to engage in activities such as golf, which he has had to limit due to pain. The patient has a history of lumbar spinal stenosis and moderate to severe arthritis in the lumbar spine, confirmed by recent imaging studies. The CT scan revealed moderate to severe arthritis at multiple levels, including L2-L3, L3-L4, and L4-L5, with mild spinal stenosis and a vacuum phenomenon at the L5 level. The patient has previously undergone cervical disc removal surgery, which was performed a long time ago. Type 2 diabetes:? Today's A1c is 7.1.. He continues on Trulicity 3 mg and insulin therapy (20 units of Lantus). Recent A1c slightly above 7.0 and he does report some dietary indiscretion over the last couple of months. Reports his sugars have been bit better. He denies any hypoglycemic events. Also does have neuropathy in his lower extremities that he has been taking gabapentin for. He does report feeling somewhat fatigued during the day which we attribute to his dose of gabapentin. .. Hypogonadism: Most recent testosterone within normal range.. Has establish care with urologist unfortunately has no follow-ups, does need refill on his topical testosterone therapy. .. Dilated cardiomyopathy: Nonischemic dilated cardiomyopathy with left ventricular ejection fraction approximately 35-50% on serial echocardiograms, he is status post biventricular ICD placement with an arterial lead revision done in 2017. He also has had a cardiac catheterization showing no significant atherosclerosis of the coronary arteries. ?Patient followed by Cardiology.? He reports recently having a few episodes of profuse sweating on minimal exertion..? Has called his surg physician asst and has an appointment coming this coming month. Of note does very elevated total cholesterol and LDL though has not been able to tolerate statin therapy.? Advised to talk to his surg physician asst about Praulent injection. .. Class 3 Obesity: ? Continues to suffer from morbid obesity though has been working very hard on trying to lose weight . He reports since starting GLP 1 he has lost weight. [facility] Surgical History History of back surgery AICD (automatic cardioverter/defibrillator) present Family History Father COPD (chronic obstructive pulmonary disease) CAD (coronary artery disease) Mother No problems noted. Social History Housing: House Patient Tobacco Use Status: Never used Tobacco Tobacco use type: Cigarette e-Cigarette/Vaping Use: Never Used Second Hand Smoke Exposure: No service: No Current occupational status: retired Cognitive needs: No Hearing needs: No Vision needs: Yes (glasses) Questionnaire Thrive Questionnaire Date Thrive assessed: 07/11/24 I am a: Patient What is your living situation today?: I have a steady place to live Within the past 12 months, did the food you bought not last and you didn't have the money to get more?: Never true Within the past 12 months, did you worry whether your food would run out before you got money to buy more?: Never true Do you have trouble paying for medicines?: Yes Do you have trouble getting transportation to medical appointments?: No Do you have trouble paying your heating and electricity bill?: No Do you have trouble taking care of your child, family member or friend?: No Do you have trouble with day-to-day activities such as bathing, preparing meals, shopping, managing finances, etc.?: No Are you currently unemployed and looking for a job?: No Are you interested in more education?: No Please select the resources that you would like help with: Paying for medicine Currently or been in a relationship where the following occur: No concerns reported THRIVE Score: 0 MASON-7 AMB Questionnaire MASON-7 Date MASON - 7 assessed: 08/29/24 Source: Developed by Drs. Damian Justice, Thuy Mast, Jonathon Light and colleagues, with an educational emi from [employer]. Review of Systems Const Denies headache(s) Eyes Denies loss of vision ENT Denies vertigo, Denies dizziness, Denies headache(s) and Denies sore throat Card Denies chest pain, Denies leg edema and Denies lightheadedness Resp Denies cough, Denies hemoptysis and Denies wheezing GI Denies abdominal pain, Denies melena, Denies constipation, Denies diarrhea and Denies vomiting Denies dysuria, Denies urinary frequency and Denies urinary urgency Musc Denies arthralgias, Denies joint swelling, Denies numbness and Denies tingling Neuro Denies Abnormal speech present, Denies behavioral changes, Denies vertigo, Denies dizziness, Denies headache(s), Denies loss of vision, Denies memory loss, Denies numbness and Denies tingling Psych Denies anxiety, Denies behavioral changes, Denies depression, Denies memory loss and Denies panic attacks Hector/Lymph Denies easy bleeding and Denies easy bruising Aller/Immun Denies wheezing Physical exam (Primary Care) Vital Signs: Last Vital Signs Temp 97.1 F 03/23/25 14:16 Pulse 70 03/23/25 14:16 BP 130/60 03/23/25 14:16 Pulse Ox 93 03/23/25 14:16 Oxygen Delivery Method Room Air 03/23/25 14:16 BMI result Body Mass Index 44.3 BMI Assessment/Plan discussion: High BMI High, discussed plan: lifestyle, weight reduction, dietary and physical activity Tobacco/Smoking Status: Tobacco use Status Tobacco use date assessed 03/23/25 03/23/25 14:24 Patient Tobacco Use Status Never used Tobacco 03/23/25 14:24 Tobacco use type Cigarette 03/23/25 14:24 e-Cigarette/Vaping Use Never Used 03/23/25 14:24 Thrive Assessment: Date of Thrive Assessment Date Thrive assessed 07/11/24 03/23/25 14:24 Currently or been in a relationship where the following occur: No concerns reported Const General: healthy appearing, no acute distress, alert and awake Nutritional Appearance: well nourished Orientation/consciousness: oriented to person, oriented to place and oriented to time HENMT Ears: TM's normal bilaterally General nose exam: Normal nasal mucous membranes and turbinates present Eyes Conjunctivae: conjunctivae normal Sclerae: sclerae normal Pupils: Equal, round and reactive pupils present Neck Neck: Yes no lymphadenopathy and Yes no JVD Thyroid: Thyroid normal Carotids: no bruits Resp Effort & Inspection: normal respiratory effort and not tachypneic Auscultation: no crackles, no rales, no rhonchi and no wheezes Cardio Rate: regular rate Rhythm: regular rhythm Heart sounds: no murmurs and normal S1 and S2 GI Palpation (GI): Soft to palpation, nontender, no hepatomegaly and no splenomegaly Auscultation: normal bowel sounds Back/Spine/Pelvis Other: LIMITED RANGE OF MOTION OF LUMBAR SPINE DUE TO PAIN AND STIFFNESS, PATIENT AMBULATING WITH AN ANTALGIC GAIT. Skin General skin exam: no rashes or lesions noted and dry skin Neuro General: oriented to person, oriented to place and oriented to time Cranial nerves: Yes Equal, round and reactive pupils present Speech: No Abnormal speech present Gait exam (Neuro): Normal gait present Motor exam (neuro): no tremor noted Extrem Right upper extremity: full ROM Left upper extremity: full ROM Right lower extremity: full ROM; no edema Left lower extremity: full ROM; no edema Psych Mental Status: mental status grossly normal Speech and movement: Normal speech and movement present Affect: normal affect Attitude: cooperative Thought process: Normal thought process present Coding Level of Care Code Est Pt Level 4 (49047) Diagnoses Spinal stenosis of lumbar region with neurogenic claudication M48.062 Neurogenic claudication status: with neurogenic claudication Neuropathy involving both lower extremities G57.93 Type 2 diabetes mellitus with diabetic polyneuropathy, without long-term current use of insulin E11.42 Diabetes mellitus complication detail: with polyneuropathy Diabetes mellitus complication status: with neurologic complications Diabetes mellitus nursing home insulin use: without nursing home use Primary hypertension I10 Hypertension type: primary hypertension Mixed hyperlipidemia E78.2 Hyperlipidemia type: mixed hyperlipidemia Assessment & Plan Assessment & Plan (1) Lumbar stenosis: Code(s): M48.061 - Spinal stenosis, lumbar region without neurogenic claudication Category: Medical Qualifiers: Neurogenic claudication status: with neurogenic claudication Qualified Code(s): M48.062 - Spinal stenosis, lumbar region with neurogenic claudication Plan: The lumbar spinal stenosis is confirmed by imaging, showing moderate to severe arthritis and mild stenosis. Referral to a neurosurgeon for potential minimally invasive surgery is discussed, with Dr. Saunders as a possible sales consultant insurance. (2) Neuropathy involving both lower extremities: Code(s): G57.93 - Unspecified mononeuropathy of bilateral lower limbs Category: Medical Plan: The patient experiences significant peripheral neuropathy, impacting daily activities such as walking and standing. EMG of his lower extremities did show moderate to severe neuropathy. Gabapentin has been helpful on reducing some of his neuropathic pain. He does have significant lower lumbar spine stenosis which we will likely send him to a neurosurgeon for evaluation for. (3) DMII (diabetes mellitus, type 2): Code(s): E11.9 - Type 2 diabetes mellitus without complications Category: Medical Qualifiers: Diabetes mellitus complication detail: with polyneuropathy Diabetes mellitus complication status: with neurologic complications Diabetes mellitus long term care phlebotomist insulin use: without nursing home use Qualified Code(s): E11.42 - Type 2 diabetes mellitus with diabetic polyneuropathy Plan: Patient's type 2 diabetes is suboptimally controlled with A1c is 7.1. He continues on Trulicity and insulin therapy. Goal A1c is to remain below 7.0. (4) HTN (hypertension): Code(s): I10 - Essential (primary) hypertension Category: Social Hx Qualifiers: Hypertension type: primary hypertension Qualified Code(s): I10 - Essential (primary) hypertension Plan: Patient's blood pressure slightly elevated today in office. Continues on lisinopril and metoprolol. Will consider increasing lisinopril dose to 30 mg if blood pressure remains above 140/90 consistently. Goal blood pressures to be below 140/90 (5) HLD (hyperlipidemia): Code(s): E78.5 - Hyperlipidemia, unspecified Category: Medical Qualifiers: Hyperlipidemia type: mixed hyperlipidemia Qualified Code(s): E78.2 - Mixed hyperlipidemia Plan: Due to statin intolerance, alternative lipid-lowering strategies such as Zetia are considered. The patient is encouraged to explore dietary supplements like niacin and omega-3s, although previous trials were not well-tolerated. Goal LDL is to be below 100 Medications: New cyclobenzaprine 10 mg PO BEDTIME 30 tabs 1RF 30 days M48.062 - Spinal stenosis, lumbar region with neurogenic claudication ezetimibe (Zetia) 10 mg PO DAILY 90 tabs 1RF 90 days E78.2 - Mixed hyperlipidemia Changed From pen needle, diabetic (BD Ultra-Fine Maddie Pen Needle) As directed 50 ea 3RF E11.42 - Type 2 diabetes mellitus with diabetic polyneuropathy To pen needle, diabetic As directed 50 ea 3RF E11.42 - Type 2 diabetes mellitus with diabetic polyneuropathy Refilled acetaminophen ER (Tylenol Arthritis Pain) 1,300 mg (2 x 650 mg) PO Q8H PRN 120 tabs 3RF pain M10.9 - Gout, unspecified dulaglutide (Trulicity) 3 mg (0.5 mL) subcut QWEEK 2 mL 3RF 4 weeks E11.42 - Type 2 diabetes mellitus with diabetic polyneuropathy
[2025-03-23 14:16] VITALS: BP 130/60; PULSE 70; TEMP 36.2; O2SAT 93; BMI 44.3
== END 2025-03-23 15:08 | disposition home or self-care (01) ==
LOC: HO.HMCH 14:10
PROVIDERS: PCP Physician Assistant; Visit Provider Physician Assistant
DX: M48.062 Spinal stenosis, lumbar region with neurogenic claudication (principal); G57.93 Unspecified mononeuropathy of bilateral lower limbs; E11.42 Type 2 diabetes mellitus with diabetic polyneuropathy; I10 Essential (primary) hypertension; E78.2 Mixed hyperlipidemia

== ENCOUNTER → 2025-03-23 14:09 | Outpatient (BNVA) | payer MEDICARE, SELFPAY | PROVIDERS: PCP Physician Assistant; Visit Provider Physician Assistant | DX: E11.42 Type 2 diabetes mellitus with diabetic polyneuropathy (principal); I10 Essential (primary) hypertension; E29.1 Testicular hypofunction; M54.16 Radiculopathy, lumbar region; I42.0 Dilated cardiomyopathy; E66.813 Obesity, class 3; M48.062 Spinal stenosis, lumbar region with neurogenic claudication; E78.2 Mixed hyperlipidemia; M10.9 Gout, unspecified; Z79.4 Long term (current) use of insulin; Z68.41 Body mass index [BMI] 40.0-44.9, adult; Z63.8 Other specified problems related to primary support group | CPT/HCPCS: 99212 ==